=== PATIENT | male | born 1945 | race Caucasian/White ===

== ENCOUNTER 2017-10-05 10:30 | Outpatient (CLI) | END 2017-10-05 10:31 | disposition home or self-care (01) | LOC: RHC-LAB 10:30 | PROVIDERS: ATTEND Emergency Medicine | DX: N17.9 Acute kidney failure, unspecified (principal); I50.21 Acute systolic (congestive) heart failure; I48.2 Chronic atrial fibrillation | CPT/HCPCS: 36415; 80053; 85025; 85610 ==

== ENCOUNTER 2017-10-08 16:04 | Outpatient (CLI) | END 2017-10-08 16:05 | disposition home or self-care (01) | LOC: RHC-LAB 16:04 | PROVIDERS: ATTEND Emergency Medicine | DX: N17.9 Acute kidney failure, unspecified (principal) | CPT/HCPCS: 36415; 80053 ==

== ENCOUNTER 2017-10-12 15:46 | Outpatient (CLI) | END 2017-10-12 15:47 | disposition home or self-care (01) | LOC: LAB 15:46 | PROVIDERS: ATTEND Emergency Medicine | DX: I48.2 Chronic atrial fibrillation (principal); N17.9 Acute kidney failure, unspecified; E87.5 Hyperkalemia | CPT/HCPCS: 36415; 80053; 85610 ==

== ENCOUNTER 2017-10-15 16:52 | Outpatient (CLI) | END 2017-10-15 16:53 | disposition home or self-care (01) | LOC: RHC-LAB 16:52 | PROVIDERS: ATTEND Emergency Medicine | DX: Z51.81 Encounter for therapeutic drug level monitoring (principal); Z79.01 Long term (current) use of anticoagulants | CPT/HCPCS: 36415; 80053 ==

== ENCOUNTER 2017-10-20 14:12 | Outpatient (CLI) | END 2017-10-20 14:13 | disposition home or self-care (01) | LOC: LAB 14:12 | PROVIDERS: ATTEND Emergency Medicine | DX: E87.5 Hyperkalemia (principal); N17.9 Acute kidney failure, unspecified; Z79.01 Long term (current) use of anticoagulants | CPT/HCPCS: 36415; 80053; 85610 ==

== ENCOUNTER 2017-10-25 12:37 | Outpatient (CLI) | END 2017-10-25 12:38 | disposition home or self-care (01) | LOC: RHC-LAB 12:37 | PROVIDERS: ATTEND Emergency Medicine | DX: Z51.81 Encounter for therapeutic drug level monitoring (principal); Z79.01 Long term (current) use of anticoagulants | CPT/HCPCS: 36415; 85610 ==

== ENCOUNTER 2017-10-26 15:39 | Outpatient (CLI) ==
[2017-10-27 00:05] VITALS: BMI 28.2
== END 2017-10-26 15:40 | disposition home or self-care (01) ==
LOC: RHC-LAB 15:39
PROVIDERS: ATTEND Emergency Medicine
DX: N17.9 Acute kidney failure, unspecified (principal)
CPT/HCPCS: 36415; 80053

== ENCOUNTER 2017-10-26 19:31 | Inpatient (IN) ==
--- NOTE | 2017-10-26 21:16 | CT ---
EXAM: CT abdomen pelvis without contrast TECHNIQUE: Helical axial CT of the abdomen and pelvis was performed without contrast with coronal an d sagittal reconstructions. COMPARISON: None HISTORY: Abdominal pain FINDINGS: There are large bilateral pleural effusions and bibasilar atelectasis with a more focal consolidation partially seen in the left anterior lung base. There is some minimal ascites and there is some subc utaneous edema seen involving the abdomen and pelvis. There is no free air identified or obstruction or ileus or pathologic adenopathy. There is no bowel wall thickening or edema. The liver, spleen, pancreas,and adrenal glands show no acute abnormality. There are a few calcificati ons in the tip of the liver. There is no hiatal hernia. The gallbladder is normal with no stones or inflammation. There is no biliary or pancreatic ductal dilatation. There are no suspicious renal masses or hydronephrosis. There is a renal cyst on the right. There ar e no kidney stones. Both ureters demonstrate normal course and caliber. There is no filling defect i n the urinary bladder. The appendix is unremarkable. There are multiple non inflamed colonic diverticula. There are no abdo fatou wall hernias. There is extremely advanced calcific atherosclerosis of the aorta. There are adva nced coronary calcifications. There are no acute osseous abnormalities. IMPRESSION: 1. Large bilateral pleural effusions with atelectasis and possible left basilar consolidation. 2. Small amount of ascites with subcutaneous edema consistent with third spacing. 3. Advanced atherosclerosis. 4. Other nonacute findings as above.
[2017-10-26] MEDS: LOPRESSOR PO SCH (21:27)
--- NOTE | 2017-10-26 22:15 | CT ---
EXAM: CT chest without contrast TECHNIQUE: Helical axial CT of the chest was performed without contrast with coronal and sagittal rec onstructions. COMPARISON: CT abdomen pelvis from today HISTORY: Pleural effusion FINDINGS: Lung parenchyma: There are large bilateral pleural effusions identified along with some moderate atel ectasis. There is atelectasis of the lingular segment on the left versus pneumonia. There is old gr anulomatous disease. Mediastinum: No pathologic hilar or mediastinal adenopathy. There are advanced coronary calcification s. There is no pericardial effusion. There is advanced calcific atherosclerosis. There is no aortic a neurysm. There is old granulomatous disease. Upper Abdomen: Please see CT abdomen pelvis report for details. Osseous structures: Nothing acute. Surrounding soft tissues including the thyroid gland are normal. No supraclavicular or axillary adeno james. IMPRESSION: 1. Large bilateral pleural effusions with bibasilar atelectasis. 2. Atelectasis versus pneumonia in the lingular segment on the left. 3. Advanced atherosclerosis.
[2017-10-27 00:05] VITALS: BMI 28.2
[2017-10-27] MEDS: SODIUM CHLORIDE 1,000 ML IV SCH ×3 (00:14→21:58)
[2017-10-27] MEDS: DUONEB NEB SCH ×3 (05:30→21:44)
[2017-10-27] MEDS: LOPRESSOR PO SCH ×2 (08:13→20:47)
[2017-10-27] MEDS: FLOMAX PO SCH (08:13)
[2017-10-27] MEDS: PROSCAR PO SCH (08:13)
[2017-10-27] MEDS: CARDIZEM CD PO SCH (08:13)
[2017-10-27] MEDS: NON-FORMULARY MEDICATION (Calcitriol [Calcitriol] 0.25 MCG) PO SCH (08:13)
[2017-10-27] MEDS ORDERED: NON-FORMULARY MEDICATION (Diltiazem Hcl [Diltiazem 24hr Cd] 240 MG) PO SCH (09:00)
[2017-10-27] MEDS: COUMADIN PO SCH ×2 (16:52→17:37)
[2017-10-28] MEDS: COUMADIN PO SCH ×2 (00:22→18:25)
[2017-10-28] MEDS: DUONEB NEB SCH ×3 (04:40→21:55)
[2017-10-28] MEDS: FLOMAX PO SCH (08:29)
[2017-10-28] MEDS: PROSCAR PO SCH (08:29)
[2017-10-28] MEDS: LOPRESSOR PO SCH ×2 (08:29→20:18)
[2017-10-28] MEDS: CARDIZEM CD PO SCH (08:29)
[2017-10-28] MEDS: NON-FORMULARY MEDICATION (Calcitriol [Calcitriol] 0.25 MCG) PO SCH (08:30)
[2017-10-28] MEDS: SODIUM CHLORIDE 1,000 ML IV SCH ×2 (08:30→22:09)
--- NOTE | 2017-10-28 14:31 | PN ---
DATE OF SERVICE: 10/27/17 SUBJECTIVE: The patient was admitted from the office for acute on chronic renal failure. The patient was lethargic and sleepy. BUN went up to 71. The patient was admitted to the hospital and urinating good. REVIEW OF SYSTEMS: CONSTITUTIONAL: No fever, no chills. HEENT: Normal. ENDOCRINE: No weight gain, no weight loss. CVS: No angina symptoms. No CHF symptoms. No palpitations. No atypical chest pain for CAD. No shortness of breath. No PND, no orthopnea. RESPIRATORY: No cough, no hemoptysis. GI: No nausea, no vomiting. No abdominal pain. : No hematuria. No polyuria. MUSCULOSKELETAL: No joint swelling. PSYCHIATRIC: Not anxious. No depression. No suicidal thoughts. No homicidal thoughts. SKIN: Intact. No rash. PHYSICAL EXAMINATION: V/S: Blood pressure 105/66, respiratory rate 12, heart rate 67, temperature 97.6 and saturation 90 on 2 liters. HEENT: Normocephalic, atraumatic. Mucosa dry. Pallor positive. No icterus. NECK: Supple. No JVD, no carotid bruit. No lymphadenopathy. LUNGS: Decreased and basilar crackles. No rales or rhonchi. HEART: S1, S2 normal. No S3. No murmur, gallop or regurgitation. ABDOMEN: Soft, nontender. Bowel sounds active. No rigidity. No rebound or guarding. No CVA tenderness. EXTREMITIES: No cyanosis, clubbing. 1+ edema. MUSCULOSKELETAL: No joint swelling. NEUROLOGIC: Awake, alert, oriented times three. No focal deficit. LYMPHATIC: No lymph nodes palpable. SKIN: Intact. LABS: WBC 7.59, hgb 8.2, hct 25.6, plt count 196, sodium 142, potassium 4.6, chloride 115, bicarb 17, BUN 73, creatinine 6.34 and glucose 90. ASSESSMENT: 1. Acute on chronic renal failure 2. 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 Coronary artery disease 4. Systolic heart failure 5. Bilateral pleural effusion 6. Anemia 7. DVT, terminal make up operator anticoagulation PLAN: 1. Continue the IV fluids 2. Daily I&O's 3. Coumadin Will follow the patient in daily rounds. TIME SPENT: More than 35 minutes MTDD
[2017-10-29] MEDS: DUONEB NEB SCH ×2 (04:54→14:09)
[2017-10-29] MEDS: NON-FORMULARY MEDICATION (Calcitriol [Calcitriol] 0.25 MCG) PO SCH (08:58)
[2017-10-29] MEDS: CARDIZEM CD PO SCH (08:59)
[2017-10-29] MEDS: PROSCAR PO SCH (09:00)
[2017-10-29] MEDS: LOPRESSOR PO SCH (09:00)
[2017-10-29] MEDS: FLOMAX PO SCH (09:00)
--- NOTE | 2017-10-29 13:34 | PN ---
DATE OF SERVICE: 10/28/17 SUBJECTIVE: The patient was admitted with acute on chronic renal failure, slightly BUN and creatinine is getting better. Urine output is almost 3,000ml yesterday. REVIEW OF SYSTEMS: CONSTITUTIONAL: No fever, no chills. HEENT: Normal. ENDOCRINE: No weight gain, no weight loss. CVS: No angina symptoms. No CHF symptoms. No palpitations. No atypical chest pain for CAD. No shortness of breath. No PND, no orthopnea. RESPIRATORY: No cough, no hemoptysis. GI: No nausea, no vomiting. No abdominal pain. : No hematuria. No polyuria. MUSCULOSKELETAL: No joint swelling. PSYCHIATRIC: Not anxious. No depression. No suicidal thoughts. No homicidal thoughts. SKIN: Intact. No rash. PHYSICAL EXAMINATION: V/S: Blood pressure 102/64, respiratory rate 20, heart rate 68, temperature 98.6. HEENT: Normocephalic, atraumatic. Mucosa dry. Pallor positive. No icterus. NECK: Supple. No JVD, no carotid bruit. No lymphadenopathy. LUNGS: Decreased and clear to auscultation. No rales or rhonchi. HEART: S1, S2 normal. No S3. No murmur, gallop or regurgitation. ABDOMEN: Soft, nontender. Bowel sounds active. No rigidity. No rebound or guarding. No CVA tenderness. EXTREMITIES: No cyanosis, clubbing. 1+ edema. MUSCULOSKELETAL: No joint swelling. NEUROLOGIC: Awake, alert, oriented times three. No focal deficit. LYMPHATIC: No lymph nodes palpable. SKIN: Intact. LABS: WBC 6.81, hgb 8.3, hct 26.1, plt count 184, sodium 141, potassium 4.9, chloride 116, bicarb 16, BUN 70, creatinine 6.07 and glucose 86. ASSESSMENT: 1. Acute on chronic renal failure 2. Urinary obstipation on Painter Catheter 3. CHF, systolic 4. Coronary artery disease, refused to have heart cath 5. BPH and elevated PSA ( Dr. Díaz is urologist) 6. Dependant leg edema 7. Anemia 8. DVT and PE PLAN: 1. Continue IV fluids 2. Daily I&O's 3. Continue the Coumadin 4. FPC anticoagulation been discussed. 4. TIME SPENT: More than 35 minutes MTDD
[2017-10-29 13:52] VITALS: TEMP 97.7
[2017-10-29 16:07] VITALS: BP 112/68
--- NOTE | 2017-11-02 08:18 | DS ---
DATE OF SERVICE: 10/29/17 FINAL DIAGNOSIS: 1. ACUTE ON CHRONIC RENAL FAILURE SECONDARY TO POSTOBSTRUCTIVE UROPATHY ON DESHPANDE CATHETER, FOLLOWS WITH DR. MOLINA AND HEMATOLOGY TECHNICIAN IN [place]. 2. ANEMIA, IRON DEFICIENCY PER BLOOD WORK, MOST LIKELY FROM THE CHRONIC KIDNEY DISEASE, NEEDING ONE UNIT OF BLOOD TRANSFUSION ON THE PATIENT. 3. SYSTOLIC HEART FAILURE. 4. PULMONARY EMBOLISM. 5. DVT, NURSING HOME ANTICOAGULATION. 6. COPD. 7. NONCOMPLIANCE. DISCHARGE INSTRUCTIONS: Followup appointment with cartography/mapping technician today. Followup in the [facility] within 5 to 7 days. MEDICATIONS AT DISCHARGE: Continue Calcitriol Diltiazem Proscar Metoprolol Flomax Coumadin ProAir NEW PRESCRIPTIONS: Albuterol Sulfate (ProAir HfA) take two puffs inhaled every 6 hours. DIET INSTRUCTIONS: Cardiac and Healthy diet; please avoid the leafy vegetables while taking Coumadin. ACTIVITY: Get plenty of rest at home. Gradually increase your activity level according to your toleration. DISEASE SPECIFIC EDUCATION: Fci anticoagulation, GI bleeding, intracranial bleed discussed, verbalized understanding. Chronic kidney disease - do not use Tylenol or Ibuprofen discussed. HOSPITAL COURSE: This patient was seen as an outpatient was recently diagnosed with acute renal failure, CAD, CHF. BUN and creatinine went up to 72 and creatinine 6.49. Admitted and started on IV fluids, gradually the BUN and creatinine were getting better and down to 6.3 and 5.74. Hemoglobin and hematocrit were 8.2, 8.3 and 7.9. At that time blood transfusion given. Anemia profile showed iron deficiency anemia. Meanwhile the patient did not have any complications. CT chest showed bilateral pleural effusion. CT abdomen and pelvis was normal. As the patient was doing fine, up and about walking, the patient was discharged home. He was given prescription for Duonebs to use at home as it was helping the patient. TIME SPENT: MORE THAN 65 MINUTES MTDD
== END 2017-10-29 16:45 | disposition home or self-care (01) | DRG 698 ==
LOC: MEDSURG B 19:31
PROVIDERS: ADMIT Emergency Medicine; ATTEND Emergency Medicine
PROC: 30233N1 Transfusion of Nonautologous Red Blood Cells into Peripheral Vein, Percutaneous Approach (ICD-10-PCS; principal; 2017-10-29)
DX: N13.9 Obstructive and reflux uropathy, unspecified (principal); I26.99 Other pulmonary embolism without acute cor pulmonale; I50.20 Unspecified systolic (congestive) heart failure; J90 Pleural effusion, not elsewhere classified; I82.403 Acute embolism and thrombosis of unspecified deep veins of lower extremity, bilateral; I48.2 Chronic atrial fibrillation; D50.9 Iron deficiency anemia, unspecified; E87.5 Hyperkalemia; R97.20 Elevated prostate specific antigen [PSA]; N40.1 Benign prostatic hyperplasia with lower urinary tract symptoms; R33.8 Other retention of urine; I25.10 Atherosclerotic heart disease of native coronary artery without angina pectoris; J44.9 Chronic obstructive pulmonary disease, unspecified; R60.0 Localized edema; Z91.19 Patient's noncompliance with other medical treatment and regimen; Z79.01 Long term (current) use of anticoagulants
CPT/HCPCS: 36415; 36430; 80053; 82607; 82728; 82746; 83540; 83550; 84466; 85025; 85045; 85610; 86850; 86900; 86922; 93005; 93010; 94640; 97802

== ENCOUNTER 2017-11-03 11:35 | Outpatient (CLI) | END 2017-11-03 11:36 | disposition home or self-care (01) | LOC: RHC-LAB 11:35 | PROVIDERS: ATTEND Emergency Medicine | DX: N17.9 Acute kidney failure, unspecified (principal) | CPT/HCPCS: 36415; 80053 ==

== ENCOUNTER 2017-11-11 13:20 | Outpatient (CLI) | END 2017-11-11 13:21 | disposition home or self-care (01) | LOC: FCC-LAB 13:20 | PROVIDERS: ATTEND Emergency Medicine | DX: N17.9 Acute kidney failure, unspecified (principal); I82.403 Acute embolism and thrombosis of unspecified deep veins of lower extremity, bilateral; I50.21 Acute systolic (congestive) heart failure; Z79.01 Long term (current) use of anticoagulants; Z51.81 Encounter for therapeutic drug level monitoring | CPT/HCPCS: 36415; 80053; 85610 ==

== ENCOUNTER 2017-11-11 17:59 | Inpatient (IN) ==
[2017-11-11 18:42] VITALS: BMI 27.3
[2017-11-11] MEDS ORDERED: COUMADIN PO SCH (20:00)
[2017-11-11] MEDS: SODIUM CHLORIDE 1,000 ML IV SCH (20:25)
[2017-11-11] MEDS: PROAIR HFA IH SCH (20:25)
[2017-11-11] MEDS: LOPRESSOR PO SCH (20:25)
[2017-11-11] MEDS: COUMADIN PO SCH (23:29)
[2017-11-12] MEDS: PROAIR HFA IH SCH ×4 (02:17→23:11)
[2017-11-12] MEDS ORDERED: NON-FORMULARY MEDICATION (Diltiazem Hcl [Diltiazem 24hr Cd] 240 MG) PO SCH (09:00)
[2017-11-12] MEDS: SODIUM CHLORIDE 1,000 ML IV SCH ×2 (09:31→23:05)
[2017-11-12] MEDS: CARDIZEM CD PO SCH (09:31)
[2017-11-12] MEDS: LOPRESSOR PO SCH ×2 (09:32→23:03)
[2017-11-12] MEDS: FLOMAX PO SCH (09:32)
[2017-11-12] MEDS: PROSCAR PO SCH (09:32)
[2017-11-12] MEDS: NON-FORMULARY MEDICATION (Calcitriol [Calcitriol] 0.25 MCG) PO SCH (09:33)
[2017-11-12] MEDS: COUMADIN PO SCH (16:26)
[2017-11-13] MEDS: PROAIR HFA IH SCH ×4 (03:47→22:30)
[2017-11-13] MEDS: CARDIZEM CD PO SCH (08:30)
[2017-11-13] MEDS: PROSCAR PO SCH (08:30)
[2017-11-13] MEDS: LOPRESSOR PO SCH ×2 (08:30→22:30)
[2017-11-13] MEDS: FLOMAX PO SCH (08:30)
[2017-11-13] MEDS: NON-FORMULARY MEDICATION (Calcitriol [Calcitriol] 0.25 MCG) PO SCH (08:31)
[2017-11-13] MEDS ORDERED: SODIUM BICARBONATE 8.4% IVP STA (08:39)
[2017-11-13] MEDS: ROCEPHIN 1 GM in SODIUM CHLORIDE 50 ML IV SCH (09:09)
[2017-11-13] MEDS: SODIUM CHLORIDE 1,000 ML IV SCH (15:14)
[2017-11-13] MEDS: COUMADIN PO SCH (16:57)
[2017-11-14] MEDS: PROAIR HFA IH SCH ×4 (01:42→21:30)
[2017-11-14] MEDS: SODIUM CHLORIDE 1,000 ML IV SCH ×2 (03:49→17:08)
[2017-11-14] MEDS: ROCEPHIN 1 GM in SODIUM CHLORIDE 50 ML IV SCH (08:28)
[2017-11-14] MEDS: PROSCAR PO SCH (08:29)
[2017-11-14] MEDS: CARDIZEM CD PO SCH (08:29)
[2017-11-14] MEDS: FLOMAX PO SCH (08:29)
[2017-11-14] MEDS: NON-FORMULARY MEDICATION (Calcitriol [Calcitriol] 0.25 MCG) PO SCH (08:29)
[2017-11-14] MEDS: LOPRESSOR PO SCH ×2 (08:29→21:29)
[2017-11-14] MEDS: COUMADIN PO SCH (16:34)
[2017-11-15] MEDS: PROAIR HFA IH SCH ×4 (01:52→21:01)
[2017-11-15] MEDS: SODIUM CHLORIDE 1,000 ML IV SCH ×3 (05:57→20:42)
[2017-11-15] MEDS: CARDIZEM CD PO SCH (09:54)
[2017-11-15] MEDS: NON-FORMULARY MEDICATION (Calcitriol [Calcitriol] 0.25 MCG) PO SCH (09:54)
[2017-11-15] MEDS: LOPRESSOR PO SCH ×2 (09:55→20:52)
[2017-11-15] MEDS: PROSCAR PO SCH (09:55)
[2017-11-15] MEDS: FLOMAX PO SCH (09:55)
[2017-11-15] MEDS: ROCEPHIN 1 GM in SODIUM CHLORIDE 50 ML IV SCH (09:56)
[2017-11-15] MEDS: COUMADIN PO SCH (17:01)
[2017-11-16] MEDS: PROAIR HFA IH SCH ×3 (05:34→14:57)
[2017-11-16] MEDS ORDERED: KAYEXALATE SUSP PO STA ×2 (08:40→15:02)
[2017-11-16] MEDS: ROCEPHIN 1 GM in SODIUM CHLORIDE 50 ML IV SCH (09:15)
[2017-11-16] MEDS: PROSCAR PO SCH (09:17)
[2017-11-16] MEDS: LOPRESSOR PO SCH (09:17)
[2017-11-16] MEDS: CARDIZEM CD PO SCH (09:17)
[2017-11-16] MEDS: FLOMAX PO SCH (09:17)
[2017-11-16] MEDS: NON-FORMULARY MEDICATION (Calcitriol [Calcitriol] 0.25 MCG) PO SCH (09:18)
[2017-11-16 13:59] VITALS: BP 115/65; TEMP 97.1
[2017-11-16] MEDS: SODIUM CHLORIDE 1,000 ML IV SCH (15:26)
--- NOTE | 2017-11-16 17:36 | PCM.HOSP ---
- Initial Hospital Care [id number] 70 Minutes Bedside ([id number]): 11/11 - Subsequent Care [id number] 35 Minutes per Day ([id number]): 11/12. . 11/14. 11/15 - Hospital Discharge [id number] More than 30 Minutes ([id number]): 11/16
--- NOTE | 2017-11-18 13:59 | PN ---
DATE OF SERVICE: 11/12/17 SUBJECTIVE: The patient was admitted with acute on chronic renal failure. BUN and creatinine slightly improved 17 and 6.54. He is up and about walking. No nausea or vomiting. Bicarb is 14. REVIEW OF SYSTEMS: CONSTITUTIONAL: No fever, no chills. HEENT: Normal. ENDOCRINE: No weight gain, no weight loss. CVS: No angina symptoms. No CHF symptoms. No palpitations. No atypical chest pain for CAD. No shortness of breath. No PND, no orthopnea. No PND. RESPIRATORY: No cough, no hemoptysis. GI: No nausea, no vomiting. No abdominal pain. : No hematuria. No polyuria. MUSCULOSKELETAL: No joint swelling. PSYCHIATRIC: Not anxious. No depression. No suicidal thoughts. No homicidal thoughts. SKIN: Intact. No rash. PHYSICAL EXAMINATION: V/S: BP 108/58, respiratory rate 18, heart rate 86, temperature 98.0, saturation normal. HEENT: Normocephalic, atraumatic. Mucosa dry. Pallor positive. No icterus. NECK: Supple. No JVD, no carotid bruit. No lymphadenopathy. LUNGS: Decreased breath sounds. Clear to auscultation. No rales or rhonchi. HEART: S1, S2 normal. No S3. No murmur, gallop or regurgitation. ABDOMEN: Soft, nontender. Bowel sounds active. No rigidity. No rebound or guarding. No CVA tenderness. EXTREMITIES: 1+ edema. No cyanosis or clubbing. MUSCULOSKELETAL: No joint swelling. NEUROLOGIC: Awake, alert. No focal deficit. LYMPHATIC: No lymph nodes palpable. SKIN: Intact. LABS: White count 8.73, hemoglobin 9.6, hematocrit 28.7, platelet count 192. Sodium 135, potassium 4.5, chloride 111, bicarb 14, BUN 73, creatinine 6.54, glucose 92. ASSESSMENT: 1. ACUTE ON CHRONIC RENAL FAILURE 2. URINARY OBSTRUCTION 3. STATUS POST OBSTRUCTIVE UROPATHY - PATIENT IS REFUSING HEMODIALYSIS 4. CORONARY ARTERY DISEASE 5. TRIPLE VESSEL DISEASE 6. EJECTION FRACTION 30 7. ATRIAL FIBRILLATION 8. DVT AND PE ON LONG-TERM ANTICOAGULATION PLAN: 1. Continue to monitor PT 2. IV fluids 3. Daily I & O's 4. Continue home medications TIME SPENT: More than 35 minutes MTDD
--- NOTE | 2017-11-18 14:12 | DS ---
DATE OF SERVICE: 11/16/17 FINAL DIAGNOSIS: 1. Acute on chronic renal failure 2. Hyperkalemia 3. Anemia probably from the chronic kidney disease 4. CAD 5. CHF 6. Atrial fibrillation 7. Ejection fraction 20% 8. DVT on penitentiary anticoagulation 9. Post obstruction uropathy with BPH and elevated PSA being followed by Dr. Díaz 10.Urinary tract infection organism of Klebsiella Oxytoca DISCHARGE INSTRUCTIONS: Discharge the patient home. Kayexalate one more dose is given today. Followup with Dr. Díaz urologist. Scheduled appointment with Dr. Amanda on November. Continue the rest of the home medications. MEDICATIONS AT DISCHARGE: Flomax Calcitriol Diltiazem Proscar Metoprolol Coumadin ProAir NEW PRESCRIPTIONS: None DIET INSTRUCTIONS: Cardiac and healthy diet ACTIVITY: As much as tolerated SMOKING: Former smoker DISEASE SPECIFIC EDUCATION: Renal failure Anemia Chronic Painter Catheter and urinary tract infection been discussed and verbalized understanding. HOSPITAL COURSE: Solomon Hummel was seen as outpatient on the November 11. BUN and creatinine was high 72 and 6.68 with Potassium 5.2 which is worsening kidney functions so the patient was suggested for the admission and the patient came to the admission and being directly admitted. Started on the IV fluids. Gradually BUN and creatinine was getting better. Creatinine dropped from 6.8 to 6.56 and 6.13 then 5.66. Meanwhile the Potassium went up to 5.6. Kayexalate was given which came down again to 5.6. Meanwhile the patient been up and about walking and did not have any shortness of breath or breathing problem. PT/INR been monitored with Coumadin dose. PT/INR was 2.35 and did not change. Urine was growing leukocyte esterase 3+ positive and started on Rocephin 1 gram daily which did grow Klebsiella Oxytoca. The patient been doing good and up and about walking. Did not have any complications. At that time the patient being discharged home today. Explained about increasing the hydration. Followup with Urologist and will be following up with the patient within 5-7 days. TIME SPENT: MORE THAN 65 MINUTES MTDD
--- NOTE | 2017-11-19 14:01 | PN ---
DATE OF SERVICE: 11/13/17 SUBJECTIVE: The patient is admitted with acute on chronic renal failure. The patient's urine output is good. UA shows some positive bacteria, growing heavy gram negative rods. Will start antibiotics. REVIEW OF SYSTEMS: CONSTITUTIONAL: No fever, no chills. HEENT: Normal. ENDOCRINE: No weight gain, no weight loss. CVS: No angina symptoms. No CHF symptoms. No palpitations. No atypical chest pain for CAD. No shortness of breath. No PND, no orthopnea. RESPIRATORY: No cough, no hemoptysis. GI: No nausea, no vomiting. No abdominal pain. : No hematuria. No polyuria. MUSCULOSKELETAL: No joint swelling. PSYCHIATRIC: Not anxious. No depression. No suicidal thoughts. No homicidal thoughts. SKIN: Intact. No rash. PHYSICAL EXAMINATION: V/S: BP 118/72, respiratory rate 18, heart rate 84, temperature 97.8, saturation 98. HEENT: Normocephalic, atraumatic. Mucosa dry. Pallor positive. No icterus. NECK: Supple. No JVD, no carotid bruit. No lymphadenopathy. LUNGS: Decreased breath sounds with basilar crackles. No rales or rhonchi. HEART: S1, S2 normal. No S3. No murmur, gallop or regurgitation. ABDOMEN: Soft, nontender. Bowel sounds active. No rigidity. No rebound or guarding. No CVA tenderness. EXTREMITIES: No cyanosis, clubbing or pedal edema. MUSCULOSKELETAL: No joint swelling. NEUROLOGIC: Awake, alert, oriented times three. No focal deficit. LYMPHATIC: No lymph nodes palpable. SKIN: Intact. LABS: Sodium 137, potassium 4.8, chloride 115, bicarb 13, BUN 68, creatinine 6.33. White count 7.75, hemoglobin 9.2, hematocrit 27.2, platelet count 185. ASSESSMENT: 1. ACUTE ON CHRONIC RENAL FAILURE 2. UTI, GRAM NEGATIVE RODS 3. METABOLIC ACIDOSIS 4. CAD 5. CHF 6. EJECTION FRACTION 30% 7. ATRIAL FIBRILLATION 8. DVT AND PE ON COMMERCIAL MANAGER ANTICOAGULATION PLAN: 1. Continue to monitor the PT/INR 2. Continue IV fluids 3. Daily I & O's 4. Will start the patient on Rocephin 1 gm daily TIME SPENT: More than 35 minutes MTDD
--- NOTE | 2017-11-22 13:23 | PN ---
DATE OF SERVICE: 11/14/17 SUBJECTIVE: The patient is up and about walking, not less short of breath. No fever, no chills. No PND or orthopnea. BUN is worse today 73 from 68 yesterday. Creatinine 6.13 from 6.33. Urine output has been good. REVIEW OF SYSTEMS: CONSTITUTIONAL: No fever, no chills. HEENT: Normal. ENDOCRINE: No weight gain, no weight loss. CVS: No angina symptoms. No CHF symptoms. No palpitations. No atypical chest pain for CAD. No shortness of breath. No PND, no orthopnea. RESPIRATORY: No cough, no hemoptysis. GI: No nausea, no vomiting. No abdominal pain. : No hematuria. No polyuria. MUSCULOSKELETAL: No joint swelling. PSYCHIATRIC: Not anxious. No depression. No suicidal thoughts. No homicidal thoughts. SKIN: Intact. No rash. PHYSICAL EXAMINATION: V/S: BP 121/73, respiratory rate 16, heart rate 74, temperature 98.3, saturation 95. HEENT: Normocephalic, atraumatic. Mucosa dry. Pallor positive. No icterus. NECK: Supple. No JVD, no carotid bruit. No lymphadenopathy. LUNGS: Decreased breath sounds with basilar crackles. HEART: S1, S2 normal. No S3. No murmur, gallop or regurgitation. ABDOMEN: Soft, nontender. Bowel sounds active. No rigidity. No rebound or guarding. No CVA tenderness. EXTREMITIES: No cyanosis, clubbing or pedal edema. MUSCULOSKELETAL: No joint swelling. NEUROLOGIC: Awake, alert. No focal deficit. LYMPHATIC: No lymph nodes palpable. SKIN: Intact. LABS: Sodium 139, potassium 4.9, chloride 117, bicarb 16, BUN 17, creatinine 6.13. White count 7.02, hemoglobin 8.8, hematocrit 26.6, platelet count 204. ASSESSMENT: 1. ACUTE ON CHRONIC RENAL FAILURE 2. METABOLIC ACIDOSIS 3. CAD 4. CHF 5. EJECTION FRACTION 20 TO 30 6. PULMONARY EMBOLISM/DVT ON PENITENTIARY ANTICOAGULATION 7. CHRONIC KIDNEY DISEASE MOSTLY STARTED WITH POST OBSTRUCTIVE UROPATHY 8. ELEVATED PSA FOLLOWED BY DR. MOLINA IN [place] PLAN: 1. Continue Coumadin 2. Continue IV fluids 3. Daily I & O's TIME SPENT: More than 35 minutes MTDD
== END 2017-11-16 15:45 | disposition home or self-care (01) | DRG 682 ==
LOC: MEDSURG A 17:59
PROVIDERS: ADMIT Emergency Medicine; ATTEND Emergency Medicine
DX: N18.9 Chronic kidney disease, unspecified (principal); I50.21 Acute systolic (congestive) heart failure; I82.409 Acute embolism and thrombosis of unspecified deep veins of unspecified lower extremity; I42.0 Dilated cardiomyopathy; E87.2 Acidosis; N39.0 Urinary tract infection, site not specified; I25.10 Atherosclerotic heart disease of native coronary artery without angina pectoris; I50.9 Heart failure, unspecified; I48.2 Chronic atrial fibrillation; E87.5 Hyperkalemia; B96.1 Klebsiella pneumoniae [K. pneumoniae] as the cause of diseases classified elsewhere; R33.9 Retention of urine, unspecified; N40.0 Benign prostatic hyperplasia without lower urinary tract symptoms; D50.9 Iron deficiency anemia, unspecified; Z79.01 Long term (current) use of anticoagulants
CPT/HCPCS: 36415; 80053; 81001; 82272; 84132; 85025; 85610; 87081; 87086; 87186

== ENCOUNTER 2017-11-19 12:19 | Outpatient (CLI) | END 2017-11-19 12:20 | disposition home or self-care (01) | LOC: LAB 12:19 | PROVIDERS: ATTEND Emergency Medicine | DX: I82.403 Acute embolism and thrombosis of unspecified deep veins of lower extremity, bilateral (principal); I50.21 Acute systolic (congestive) heart failure; Z51.81 Encounter for therapeutic drug level monitoring; Z79.01 Long term (current) use of anticoagulants; I48.2 Chronic atrial fibrillation | CPT/HCPCS: 36415; 80053; 85610 ==

== ENCOUNTER 2017-11-22 15:48 | Outpatient (CLI) | END 2017-11-22 15:49 | disposition home or self-care (01) | LOC: RHC-LAB 15:48 | PROVIDERS: ATTEND Emergency Medicine | DX: Z51.81 Encounter for therapeutic drug level monitoring (principal); Z79.01 Long term (current) use of anticoagulants | CPT/HCPCS: 36415; 80053; 85610 ==

== ENCOUNTER 2017-11-29 12:52 | Outpatient (CLI) | END 2017-11-29 12:53 | disposition home or self-care (01) | LOC: LAB 12:52 | PROVIDERS: ATTEND Emergency Medicine | DX: I48.2 Chronic atrial fibrillation (principal); D50.0 Iron deficiency anemia secondary to blood loss (chronic) | CPT/HCPCS: 36415; 80053; 85610 ==

== ENCOUNTER 2017-12-14 17:25 | Inpatient (IN) ==
[2017-12-14] MEDS ORDERED: DUONEB NEB STA (17:40)
[2017-12-14] MEDS ORDERED: SOLU-MEDROL 125 MG IVP STA (17:45)
[2017-12-14] MEDS ORDERED: LASIX IVP STA (17:45)
[2017-12-14] MEDS ORDERED: CARDIZEM INJ IVP STA ×2 (17:46)
[2017-12-14] MEDS ORDERED: CARDIZEM INJ ONE (17:54)
--- NOTE | 2017-12-14 18:03 | ED.PDOC ---
General ED Provider: Dr. YVES TEJEDA Chief Complaint: Shortness of Air Stated Complaint: Shortness of breath progressively worsened over past 2 days. Extremely weak. Hx Chronic Kidney Disease Time Seen by Physician: 17:50 Mode of Arrival: Wheelchair Information Source: Patient, Family Exam Limitations: Clinical condition Primary Care Provider: [facility] Nursing and Triage Documentation Reviewed and Agree: Yes Does patient meet sepsis criteria?: Yes If yes, has appropriate treatment been initiated?: Yes System Inflammatory Response Syndrome: Pulse >90 BPM, Resp >20/Minute Sepsis Protocol: For patient's 13 years and over: Temp is 96.8 and below OR 101 and greater Pulse >90 BPM Resp >20/minute Acutely Altered Mental Status Are patient's symptoms suggestive of a new infection, such as: -Pneumonia -Skin, Soft Tissue -Endocarditis -UTI -Bone, Joint Infection -Implantable Device -Acute Abdominal Infection -Wound Infection -Meningitis -Blood Stream Catheter Infection -Unknown Respiratory Complaint Exam - Shortness of Air Complaint/Exam Onset/Duration: 2 days Symptoms Are: Still present Timing: Constant Initial Severity: Moderate Current Severity: Severe Character: Reports: Dyspnea at rest, Dyspnea on exertion Aggravating: Reports: Movement, Recumbent position Alleviating: Reports: None Associated Signs and Symptoms: Reports: Wheezing, Chest pain with cough, Fever, Chills, Labored breathing Related History: Reports: Similar episode History of Healthcare-Acquired Pneumonia: No Pulmonary Embolism Risk Factors: Reports: None Cardiac Risk Factors: Reports: CHF Review of Systems - Review Of Systems Constitutional: Reports: Diaphoresis Eyes: Reports: No symptoms Ears, Nose, Mouth, Throat: Reports: No symptoms Respiratory: Reports: Cough, Short of air, Wheezing Cardiac: Reports: Irregular heart rate, Palpitations GI: Reports: No symptoms : Reports: No symptoms Musculoskeletal: Reports: No symptoms Skin: Reports: No symptoms Neurological: Reports: No symptoms Endocrine: Reports: No symptoms Hematologic/Lymphatic: Reports: No symptoms All Other Systems: Other (Renal failure) Past Medical History - Past Medical History Previously Healthy: Yes Endocrine: Reports: None Cardiovascular: Reports: None, Hypertension, CHF, A-Fib Respiratory: Reports: None, COPD, Bronchitis Hematological: Reports: None Gastrointestinal: Reports: None Genitourinary: Reports: None Neuro/Psych: Reports: None Musculoskeletal: Reports: None Cancer: Reports: None - Surgical History General Surgical History: Reports: None, Unknown - Family History Family History: Reports: None, Unknown - Social History Smoking Status: Former smoker Hx Substance Use: No Physical Exam - Physical Exam Appearance: Ill-appearing, Thin Ill-appearing: Severe Pain Distress: Mild Eyes: ZI, EOMI, Conjunctiva clear ENT: Ears normal, Nose normal, Oropharynx normal Neck: Supple Respiratory: Breath sounds diminished, Crackles, Wheezes Cardiovascular: Irregular rhythm, Tachycardia GI/: Soft, Nontender, No masses, Bowel sounds normal, No Organomegaly Musculoskeletal: Normal strength, ROM intact, No edema, No calf tenderness Skin: Warm, Dry, Normal color Neurological: Sensation intact, Motor intact, Reflexes intact, Cranial nerves intact, Alert, Oriented Psychiatric: Affect appropriate, Mood appropriate Interpretation - Radiology Interpretation Radiology Interpretation By: Radiologist Exam Interpreted: Portable CXR (acute lt sided chest changes) Re-Evaluation - Re-Evaluation Time of Re-Evaluation: 19:30 Status: Improved Vital Signs Stable: Yes Appearance: NAD Lungs: Other (diminished) Skin: Warm and Dry Neuro: Alert and Oriented X3 CV: RRR Critical Care Note - Critical Care Note Total Time (mins): 60 Course - Course Hematology/Chemistry: 12/14/17 17:30 12/14/17 17:30 Orders, Labs, Meds: Lab Review 12/14/17 12/14/17 12/14/17 17:30 17:30 17:30 WBC 13.38 H RBC 3.36 L Hgb 10.0 L Hct 28.9 L MCV 86.0 MCH 29.8 MCHC 34.6 RDW Coeff of Kirsten 15.4 H Plt Count 206 Immature Gran % (Auto) 0.7 Neut % (Auto) 84.5 Lymph % (Auto) 6.7 L Nelson % (Auto) 8.0 Eos % (Auto) 0.0 Baso % (Auto) 0.1 Immature Gran # (Auto) 0.1 Neut # (Auto) 11.3 H Lymph # (Auto) 0.9 Nelson # (Auto) 1.1 Eos # (Auto) 0.0 Baso # (Auto) 0.0 PT INR APTT D-Dimer (Manual) Puncture Site O2 Saturation ABG pH ABG pCO2 ABG pO2 ABG HCO3 ABG Total CO2 ABG Base Excess Mitchell Test FiO2 % Sodium 132 L Potassium 5.2 H Chloride 104 Carbon Dioxide 14 L Anion Gap 19.2 BUN 82 H* Creatinine 6.14 H* Estimated GFR (MDRD) 9.00 BUN/Creatinine Ratio 13.35 Glucose 188 H Lactic Acid Calcium 8.8 Total Bilirubin 0.8 AST 186 H ALT 276 H Alkaline Phosphatase 73 Total Creatine Kinase 122 CK-MB (CK-2) 2.6 CK-MB (CK-2) % 2.85336 Troponin I 0.0980 B-Natriuretic Peptide 6665 H Total Protein 7.2 Albumin 3.2 L Globulin 4.0 Albumin/Globulin Ratio 0.80 12/14/17 12/14/17 12/14/17 17:30 17:30 17:30 WBC RBC Hgb Hct MCV MCH MCHC RDW Coeff of Kirsten Plt Count Immature Gran % (Auto) Neut % (Auto) Lymph % (Auto) Nelson % (Auto) Eos % (Auto) Baso % (Auto) Immature Gran # (Auto) Neut # (Auto) Lymph # (Auto) Nelson # (Auto) Eos # (Auto) Baso # (Auto) PT 19.2 H INR 1.96 APTT 36.7 D-Dimer (Manual) 4384.74 Puncture Site O2 Saturation ABG pH ABG pCO2 ABG pO2 ABG HCO3 ABG Total CO2 ABG Base Excess Mitchell Test FiO2 % Sodium Potassium Chloride Carbon Dioxide Anion Gap BUN Creatinine Estimated GFR (MDRD) BUN/Creatinine Ratio Glucose Lactic Acid 16.1 Calcium Total Bilirubin AST ALT Alkaline Phosphatase Total Creatine Kinase CK-MB (CK-2) CK-MB (CK-2) % Troponin I B-Natriuretic Peptide Total Protein Albumin Globulin Albumin/Globulin Ratio 12/14/17 17:39 WBC RBC Hgb Hct MCV MCH MCHC RDW Coeff of Kirsten Plt Count Immature Gran % (Auto) Neut % (Auto) Lymph % (Auto) Nelson % (Auto) Eos % (Auto) Baso % (Auto) Immature Gran # (Auto) Neut # (Auto) Lymph # (Auto) Nelson # (Auto) Eos # (Auto) Baso # (Auto) PT INR APTT D-Dimer (Manual) Puncture Site Lr O2 Saturation 77.0 L ABG pH 7.321 L ABG pCO2 23.7 L ABG pO2 44.0 L* ABG HCO3 12.3 L ABG Total CO2 13 L ABG Base Excess -14 L Mitchell Test + FiO2 % 21.0 Sodium Potassium Chloride Carbon Dioxide Anion Gap BUN Creatinine Estimated GFR (MDRD) BUN/Creatinine Ratio Glucose Lactic Acid Calcium Total Bilirubin AST ALT Alkaline Phosphatase Total Creatine Kinase CK-MB (CK-2) CK-MB (CK-2) % Troponin I B-Natriuretic Peptide Total Protein Albumin Globulin Albumin/Globulin Ratio Orders Category Date Time Status ABG DRAW REQUEST Stat CARDIO 12/14/17 17:40 Completed EKG-(ED ONLY) Stat CARDIO 12/14/17 17:39 Completed NEBULIZER TREATMENT Stat CARDIO 12/14/17 17:39 Completed ABG Stat LAB 12/14/17 17:39 Completed B-TYPE NATRIURETIC PEPTIDE Stat LAB 12/14/17 17:30 Completed BLOOD CULTURE (ED ONLY) Stat LAB 12/14/17 17:30 Received CBC W/ AUTO DIFF Stat LAB 12/14/17 17:30 Completed COMPREHENSIVE METABOLIC PANEL Stat LAB 12/14/17 17:30 Completed CREATINE KINASE Stat LAB 12/14/17 17:30 Completed D-DIMER Stat LAB 12/14/17 17:30 Completed LACTIC ACID Stat LAB 12/14/17 17:30 Completed PT WITH INR Stat LAB 12/14/17 17:30 Completed PTT [PARTIAL THROMBOPLASTIN TIME] Stat LAB 12/14/17 17:30 Completed TROPONIN I Stat LAB 12/14/17 17:30 Completed 0.9 % Sodium Chloride [Sodium Chloride] 100 ml MEDS 12/14/17 18:00 Ordered Diltiazem HCl Inj [Cardizem Inj] 125 mg IV 10 mg/hr Ceftriaxone Sodium [Rocephin] 1 gm MEDS 12/14/17 19:46 Active 0.9 % Sodium Chloride [Sodium Chloride] 50 ml IV ONCE Diltiazem HCl Inj [Cardizem Inj] MEDS 12/14/17 17:46 Discontinued 20 mg IVP ONCE STA Diltiazem HCl [Cardizem Inj] MEDS 12/14/17 17:54 Discontinued 25 mg .ROUTE .STK-MED ONE Enoxaparin Sodium [Lovenox] MEDS 12/14/17 19:47 Stop Req 100 mg SUBCUT ONCE STA Enoxaparin Sodium [Lovenox] MEDS 12/14/17 19:48 Discontinued 30 mg SUBCUT ONCE STA Furosemide [Lasix] MEDS 12/14/17 17:45 Discontinued 40 mg IVP ONCE STA Ipratropium/Albuterol Neb [Duoneb] MEDS 12/14/17 17:40 Discontinued 1 vial NEB ONCE STA Methylprednisolone Sod Succ/Pf [Solu-Medrol 125 mg] MEDS 12/14/17 17:45 Discontinued 125 mg IVP ONCE STA CHEST, 1V AP ONLY Stat RADS 12/14/17 17:42 Completed Medications Generic Name Dose Route Start Last Admin Trade Name Freq PRN Reason Stop Dose Admin Diltiazem HCl 125 mg/ Sodium 125 mls @ 10 mls/hr 12/14/17 18:00 12/14/17 18: 08 Chloride IV 5 mg/hr .[id number] ROSE 5 mls/hr Administration Protocol 10 MG/HR Ceftriaxone Sodium 1 gm/ 50 mls @ 75 mls/hr 12/14/17 19:46 Sodium Chloride IV 12/14/17 20:25 ONCE STA Discontinued Medications Generic Name Dose Route Start Last Admin Trade Name Freq PRN Reason Stop Dose Admin Albuterol/Ipratropium 1 vial 12/14/17 17:40 12/14/17 17:46 Duoneb NEB 12/14/17 17:41 1 vial ONCE STA Administration Diltiazem HCl 20 mg 12/14/17 17:46 12/14/17 18:00 Cardizem Inj IVP 12/14/17 17:47 20 mg ONCE STA Administration Enoxaparin Sodium 30 mg 12/14/17 19:48 Lovenox SUBCUT 12/14/17 19:49 ONCE STA Furosemide 40 mg 12/14/17 17:45 12/14/17 17:53 Lasix IVP 12/14/17 17:46 40 mg ONCE STA Administration Methylprednisolone Sodium Succinate 125 mg 12/14/17 17:45 12/14/17 17:53 Solu-Medrol 125 Mg IVP 12/14/17 17:46 125 mg ONCE STA Administration Vital Signs: Temp Pulse Resp BP Pulse Ox 12/14/17 18:36 91 H 114/75 90 L 12/14/17 17:57 117 H 130/92 H 88 L 12/14/17 17:31 100.0 F H 139 H 30 H 121/91 H 80 L Departure - Departure Time of Disposition: 20:00 Disposition: ADMITTED INPATIENT Discharge Problem: Acute exacerbation of chronic obstructive airways disease, Atrial fibrillation with RVR, Stage 5 chronic kidney disease, Pleural effusion, Chronic CHF Condition: Critical Pt referred to PMD for follow-up: Yes IPMP verified?: No Allergies/Adverse Reactions: Allergies No Known Allergies Allergy (Verified 12/14/17 18:49) Home Medications: Ambulatory Orders Metoprolol Tartrate 50 mg PO BID 10/05/17 Albuterol Sulfate [Proair Hfa] 2 puff IH Q6H #1 puff 10/29/17 Cholecalciferol (Vitamin D3) [Vitamin D3] 5,000 unit PO DAILY 12/14/17 Sodium Bicarbonate 10 gr PO TID 12/14/17 Disposition Discussed With: Patient, Family (Admit to Dr Amanda) Additional Information: SPOKE TO PATIENT REGARDING HIS CONDITION AND CHRONIC KIDNEY DISEASE OPTIONS OF DIALYSIS DISCUSSED/STATED NOT INTERESTED/ADVISED IF DECIDES TO PROCEED WITH DIALYSIS , COULD ALWAYS OPT TO DISCONTINUE ATANY TIME STATES HE IS A DNR
[2017-12-14] MEDS: CARDIZEM INJ 125 MG in SODIUM CHLORIDE 100 ML IV SCH (18:08)
--- NOTE | 2017-12-14 19:09 | DI ---
EXAM: Single view of the chest HISTORY: Shortness of breath. COMPARISON: CT chest 10/26/2017 FINDINGS: There is no pneumothorax. There is a large left consolidation and adjacent effusion. The cardiomediastinal silhouette is obscured due to consolidation and effusion. There is mild ground-gla ss and minimal blunting right costophrenic angle. There is an unchanged calcification in the right l ana lilia. The osseous structures are unremarkable. IMPRESSION: 1. Large left effusion and adjacent consolidation that may represent atelectasis or pneumonia. 2. Small right effusion with adjacent atelectasis.
[2017-12-14] MEDS ORDERED: ROCEPHIN 1 GM in SODIUM CHLORIDE 50 ML IV STA (19:46)
[2017-12-14] MEDS ORDERED: LOVENOX SUBCUT STA ×2 (19:47→19:48)
[2017-12-14] MEDS ORDERED: ROCEPHIN ONE (19:52)
[2017-12-14] MEDS ORDERED: SODIUM CHLORIDE 1,000 ML IV SCH (20:30)
[2017-12-14 22:10] VITALS: BMI 29.1
[2017-12-14] MEDS: SOLU-MEDROL 125 MG IVP SCH (22:27)
[2017-12-15] MEDS: SOLU-MEDROL 125 MG IVP SCH ×3 (05:53→20:30)
[2017-12-15] MEDS: LASIX IVP SCH (05:53)
[2017-12-15] MEDS ORDERED: COUMADIN PO STA (07:59)
[2017-12-15] MEDS: PROTONIX PO SCH ×2 (08:48→17:17)
[2017-12-15] MEDS ORDERED: NON-FORMULARY MEDICATION (Diltiazem Hcl [Diltiazem 24hr Cd] 240 MG) PO SCH (09:00)
[2017-12-15] MEDS: PROAIR HFA IH SCH ×3 (09:29→20:29)
[2017-12-15] MEDS: PROSCAR PO SCH (09:31)
[2017-12-15] MEDS: CARDIZEM CD PO SCH (09:31)
[2017-12-15] MEDS: LOPRESSOR PO SCH ×2 (09:31→20:29)
[2017-12-15] MEDS: FLOMAX PO SCH (09:31)
[2017-12-15] MEDS: NON-FORMULARY MEDICATION (Calcitriol [Calcitriol] 0.25 MCG) PO SCH (10:17)
[2017-12-15] MEDS: SODIUM CHLORIDE 1,000 ML IV SCH (11:34)
--- NOTE | 2017-12-15 11:48 | RS.PTINEVL ---
Subjective - Patient information Date of Evaluation: 12/15/17 Date of Arrival on Unit: 12/14/17 Diagnosis: acute exacerbation COPD, Afib with RVR, stage 5 kidney disease, pleural eff Usual Living Arrangement: Alone Living Arrangement Comments: no problems Home Environment: House, Stairs (few), Rail Medical History: Hypertension, COPD, CHF Medical History Comments:: bronchitis, stage 5 kidney disease, afib LATEX ALLERGY?: No Medications: see chart Subjective Information/ Patient Comments:: pt states that he has been weaker the last couple of weeks. States he has had a fall required assist to get up from floor. - Level of function Prior to this admission, the patient could do the following:: Independent ADL's , Independent Ambulation, Drive Current Level of Function: Partially Dependent Current Equipment Used at Home: walker when needed Interventions - Objective Patient Orientation: Person, Place, Time, Situation Current Interventions: IV's, Oxygen, Telemetry, Painter Catheter Range of Motion - ROM Right Upper Extremity AROM: WFL's Left Upper Extremity AROM: WFL's Right Lower Extremity AROM: WFL's Left Lower Extremity AROM: WFL's Muscle Strength - Muscle Strength Right Upper Extremity Strength: Mild Weakness Left Upper Extremity Strength: Mild Weakness (grossly 4-/5) Right Lower Extremity Strength: Mild Weakness (hip flex 4-/5, knee flex/ext 4-/5 , ankle DF/PF 4/5) Left Lower Extremity Strength: Mild Weakness (hip flex 4-/5, knee flex/ext 4-/5 , ankle DF/PF 4/5) Sensation - Sensation Right Upper Extremity Sensation: Intact/Normal Left Upper Extremity Sensation: Intact/Normal Right Lower Extremity Sensation: Intact/Normal Left Lower Extremity Sensation: Intact/Normal Palpation Palpation Findings: Tenderness (BLE) Balance - Sitting Balance and Reactions Static Sitting Balance: Good Dynamic Sitting Balance: Fair Sitting Equilibrium Reactions: Delayed Left, Delayed Right Sitting Protective Reactions: Delayed Left, Delayed Right - Standing Balance and Reactions Static Standing Balance: Fair Dynamic Standing Balance: Poor Standing Equilibrium Reactions: Delayed Left, Delayed Right Standing Protective Reactions: Delayed Left, Delayed Right Functional Mobility - Bed Mobility Rolling R/L: CGA Scooting: CGA Supine to Sit: Min Assist Sit to Supine: CGA - Transfers Sit to Stand: Min Assist Stand to Sit: CGA - Safety Awareness Safety Awareness: Fair NORMA INDEX SCORE: n/a Ambulation - Ambulation Assistive Device Used: Rolling Walker Orthotic/Prosthetic Device: No Distance: 180ft Assistance needed with Ambulation: Min Assist Gait Deviations: Forward posture, Short stride Ambulation Comments: pt amb with decreased step length, flexed posture. Factors Affecting Ambulation: Decreased Balance, Weakness, Decreased Safety, Cognitive Status, Limited Endurance Treatment time - Time with patient Length of Evaluation: 26 Total treatment time: 31 Patient Education - Education Patient Education: Home Exercise Program, Education of Plan of Care Teaching Recipient: Patient Teaching Methods: Discussion Comments: discussion regarding POC as well as safety with amb. Assessment - Assessment Problem List:: Decreased level of function, Requires training/education, Decreased safety/Risk of falls, Weakness Rehab Potential: Good Further Therapy Indicated?: Yes Candidate for Swing Bed for Therapy Services?: pt may not be a candidate for swing bed for therapy due to higher level of function. Evaluation Complexity: HISTORY: Medium (htn, chf, copd, afib), EXAM OF BODY SYSTEMS: Medium (gait, balance, strength, endurance), CLINICAL PRESENTATION: Medium (evolving), CLINICAL DECISION MAKING: Medium Short Term Goals GOAL #1: pt transfer sup to/from sit to/from stand CGA Goal to be met by: 12/18/17 GOAL #2: pt independent with rolling and scooting up in bed Goal to be met by: 12/18/17 GOAL #3: pt amb with rwx with CGA with no LOB 200ft Goal to be met by: 12/18/17 Theology Teacher Goals GOAL #1: Transfer sup to/from sit to/from stand SBA Goal to be met by: 12/21/17 GOAL #2: pt amb with rwx functional household distances SBA with no LOB Goal to be met by: 12/21/17 GOAL #3: pt with improved BLE strength 4 to 4+/5 Goal to be met by: 12/21/17 Plan Plan of Care: Therapeutic EX, Therapeutic Activity Other:: gait training Frequency of Treatment: 1-2 X day, as tolerated Duration of Treatment: 6 days Anticipated Discharge Destination: Home Treatment Diagnosis (ICD 10 Codes): r 26.2 difficulty walking. R 26.81 balance impaired Has the Physician been added for Co-signature?: Yes
[2017-12-15] MEDS: SODIUM BICARBONATE PO SCH ×2 (11:57→17:17)
[2017-12-15] MEDS ORDERED: SODIUM BICARBONATE PO SCH (12:00)
[2017-12-15] MEDS ORDERED: SODIUM BICARBONATE 7.5% IVP STA (17:13)
[2017-12-15] MEDS: CARDIZEM INJ 125 MG in SODIUM CHLORIDE 100 ML IV SCH (17:43)
[2017-12-16] MEDS: SOLU-MEDROL 125 MG IVP SCH ×2 (05:54→14:02)
[2017-12-16] MEDS: PROTONIX PO SCH ×2 (05:54→17:37)
[2017-12-16] MEDS: LASIX IVP SCH (05:54)
[2017-12-16] MEDS: PROAIR HFA IH SCH ×3 (05:55→14:02)
[2017-12-16] MEDS: CARDIZEM INJ 125 MG in SODIUM CHLORIDE 100 ML IV SCH (07:49)
[2017-12-16] MEDS: PROSCAR PO SCH (09:01)
[2017-12-16] MEDS: LOPRESSOR PO SCH (09:01)
[2017-12-16] MEDS: NON-FORMULARY MEDICATION (Calcitriol [Calcitriol] 0.25 MCG) PO SCH (09:01)
[2017-12-16] MEDS: SODIUM CHLORIDE 1,000 ML IV SCH (09:01)
[2017-12-16] MEDS: FLOMAX PO SCH (09:01)
[2017-12-16] MEDS: SODIUM BICARBONATE PO SCH ×3 (09:01→17:37)
[2017-12-16] MEDS: CARDIZEM CD PO SCH (09:02)
--- NOTE | 2017-12-16 09:24 | HP ---
DATE OF SERVICE: 12/14/17 CHIEF COMPLAINT: Shortness of breath HISTORY OF PRESENT ILLNESS: This is a 72 year old male came to the emergency room with cough, congestion and shortness of breath. The patient was called to the office early, came to the office walking where he seemed to be in acute respiratory distress and advised the patient to go to the emergency room. The patient went to the emergency room and temperature was 100, saturation was 70 on the room air, blood pressure 192, respiratory rate 30. The patient was seen by Dr. Beach in the emergency room. WBC was 13,000 with left shift. PT/INR 196, D-Dimer was highly elevated. ABG done showed the pH 7.321, pCO2 23.7, pO2 44, sodium 132, potassium 5.2, BUN 82, creatinine 6.14 and glucose 188. AST and ALT elevated and BNP 6,665. Chest x-ray showed left lower lobe pleural effusion with atelectasis. At that time the patient was given breathing treatment and being admitted to the hospital for IV antibiotics, breathing treatments and IV fluid management. REVIEW OF SYSTEMS: CONSTITUTIONAL: No fever, no chills. Weakness and tiredness. HEENT: Normal. ENDOCRINE: No weight gain; no weight loss. CVS: No chest pain. No PND, no orthopnea. Shortness of breath. No PND, no orthopnea. RESPIRATORY: Cough, Congestion. No hemoptysis. GI: No nausea, no vomiting. No abdominal pain. No melena. : No hematuria. No polyuria. MUSCULOSKELETAL: No joint swelling. PSYCHIATRIC: Not anxious. No depression. No suicidal thoughts. No homicidal thoughts. SKIN: Intact, no open lesions. PAST MEDICAL HISTORY: Coronary artery disease with systolic ejection fraction 25-30% History of pulmonary embolism Acute on chronic kidney disease BPH Elevated PSA, sees Dr. Díaz DVT, on Coumadin Atrial fibrillation Anemia BPH PAST SURGICAL HISTORY: None PERSONAL HISTORY: The patient does not smoke or drink and lives by himself. FAMILY HISTORY: Heart problems Diabetes MEDICATIONS: Metoprolol ProAir Calcitriol Flomax Proscar Coumadin Diltiazem Vitamin D3 Sodium Bicarbonate ALLERGIES: No known allergies PHYSICAL EXAMINATION: V/S: Blood pressure 121/91, respiratory rate 28, heart rate 110, temperature 100. GENERAL: Sick looking male laying in the bed. HEENT: Atraumatic, normocephalic. No scleral icterus. Mucosa dry. NECK: Supple. No JVD, no bruit. No lymphadenopathy. No thyromegaly. HEART: S1, S2 normal. No murmur. No cyanosis or clubbing. No ascites. LUNGS: Decreased and basilar crackles. Mild expiratory wheeze. No rales or rhonchi. ABDOMEN: Soft, nontender. Bowel sounds are active. No CVA tenderness. No rigidity or guarding. EXTREMITIES: 1+ pedal edema. No cyanosis or clubbing MUSCULOSKELETAL: Normal joints, no swelling. NEUROLOGIC: The patient is awake and alert SKIN: Intact; no open lesions. LYMPHATIC: No lymph nodes palpable. LABS: Sodium 132, potassium 5.2, chloride 104, bicarb 14, BUN 82, creatinine 6.12 and glucose 188, AST 186, ALT 276, BNP 6,665, WBC 13.38, hgb 10.0, hct 28.9, plt count 206, ABG showed the pH 7.321, pCO2 23.7, pO2 44. ASSESSMENT: 1. Acute on chronic renal failure 2. Acute on chronic systolic heart failure 3. COPD Exacerbation secondary to the pneumonia 4. Pleural effusion 5. Pulmonary embolism 6. Impaired systolic heart function with ejection fraction 25-30 7. PE and DVT on prison anticoagulation 8. Atrial fibrillation PLAN: 1. Admit the patient to the SCU 2. IV fluids at 70cc ml per hour 3. Daily I&O 4. Rocephin 1 gram daily 5. DUO NEBS 6. Steroids 7. Continue home medication TIME SPENT: More than 75 minutes critical care time. ANNETTA
--- NOTE | 2017-12-16 09:38 | PN ---
DATE OF SERVICE: 12/15/17 SUBJECTIVE: The patient was admitted with the COPD exacerbation, acute on chronic renal failure and acute on chronic heart failure. Hgb dropped to 10 to 8.7. BUN and creatinine is steady. Saturation is better and breathing is better. REVIEW OF SYSTEMS: CONSTITUTIONAL: No fever, no chills. HEENT: Normal. ENDOCRINE: No weight gain, no weight loss. CVS: No angina symptoms. No CHF symptoms. No palpitations. No atypical chest pain for CAD. No shortness of breath. No PND, no orthopnea. RESPIRATORY: Still coughing and congested, no hemoptysis. GI: No nausea, no vomiting. No abdominal pain. : No hematuria. No polyuria. MUSCULOSKELETAL: No joint swelling. PSYCHIATRIC: Not anxious. No depression. No suicidal thoughts. No homicidal thoughts. SKIN: Intact. No rash. PHYSICAL EXAMINATION: V/S: Blood pressure 115/73, respiratory rate 18, heart rate 92, temperature 97.7 with saturation 98 % on 3 liters. HEENT: Normocephalic, atraumatic. Mucosa dry. Pallor positive. NECK: Supple. No JVD, no carotid bruit. No lymphadenopathy. LUNGS: Decreased and basilar crackles. Clear to auscultation. No rales or rhonchi. HEART: S1, S2 normal. No S3. No murmur, gallop or regurgitation. ABDOMEN: Soft, nontender. Bowel sounds active. No rigidity. No rebound or guarding. No CVA tenderness. EXTREMITIES: No cyanosis, clubbing or pedal edema. MUSCULOSKELETAL: No joint swelling. NEUROLOGIC: Awake, alert. No focal deficit. LYMPHATIC: No lymph nodes palpable. SKIN: Intact. LABS: Sodium 134, potassium 4.5, chloride 107, bicarb 14, BUN 89, creatinine 6.44, AST 190, ALT 250, WBC 8.87, hgb 8.7, hct 25.3, plt count 158. ASSESSMENT: 1. Acute on chronic renal failure 2. Acute on chronic heart failure 3. COPD exacerbation secondary to the pneumonia 4. Atrial fibrillation 5. Metabolic acidosis PLAN: 1. Continue Rocephin 1 gram daily 2. Breathing treatment 3. Daily I&O's TIME SPENT: More than 35 minutes MTDD
--- NOTE | 2017-12-16 11:26 | RS.OTINEVL ---
Subjective - Patient information Date of Evaluation: 12/16/17 Date of Arrival on Unit: 12/14/17 Admitted From:: Emergency Dept Usual Living Arrangement: Alone Living Arrangement Comments: no problems Home Environment: House, Stairs (few), Rail Medical History: Hypertension, COPD, CHF Medical History Comments:: bronchitis, stage 5 kidney disease, afib LATEX ALLERGY?: No Medications: see chart Subjective Information/ Patient Comments:: "I live in the [facility]." "My nephew lives close by. I have a trailer." - Level of function Prior to this admission, the patient could do the following:: Independent ADL's , Independent Ambulation, Drive Abilities prior to this admission: Pt was living alone and driving his car. Patient reports he cooks and would welcome some help cleaning his home. Pt reports he just got weak and now his legs are sore. Patient lives in a trailer and has 3 steps with a rail to enter his home. Pt wears a ponce catheter at all times. SOA with activity. Current Equipment Used at Home: walker when needed Pain Assessment - Pain Pain Score: 0 Interventions - Objective Patient Orientation: Person, Place, Time, Situation Current Interventions: IV's, Oxygen, Telemetry, Ponce Catheter Observation: Pt reports his legs are weak. Pt is oriented x 4. Pt is having difficulty with transfers. Interventions - ROM Right Upper Extremity AROM: WFL's Left Upper Extremity AROM: WFL's - Strength Right Upper Extremity Strength: Mild Weakness Left Upper Extremity Strength: Mild Weakness - Sensation Right Upper Extremity Sensation: Intact/Normal Left Upper Extremity Sensation: Intact/Normal Balance - Sitting Balance Static Sitting Balance: Fair Dynamic Sitting Balance: Fair - Standing Balance Static Standing Balance: Poor Dynamic Standing Balance: Poor ADL Skills - Self Feeding Self Feeding: Independent - Grooming Grooming: CGA - Bathing Bathing UE: CGA Bathing LE: CGA - Dressing Dressing UE: CGA Dressing LE: CGA - Toilet Management Toileting Management: CGA Functional Mobility - Bed Mobility Rolling R/L: Supervision, CGA Scooting: Supervision, CGA Supine to Sit: Min Assist Sit to Supine: CGA - Transfers Sit to Stand: Min Assist Stand to Sit: Min Assist Stand Pivot Transfers: Min Assist - Ambulation Weight Bearing Status: FWB Assistive Device Used: Rolling Walker Assistance needed with Ambulation: Min Assist, 2 person assist - Safety Awareness Safety Awareness: Good NORMA INDEX SCORE: . Additional Treatment Performed - Time with patient Length of Evaluation: 20 Total treatment time: 22 Activities Do you have difficulty with your vision?: Yes (Wears glasses) Patient Interests:: Watching Television, Visiting/Socializing Patient Education Patient Education: Home Safety, Education of Plan of Care Teaching Recipient: Patient Teaching Methods: Discussion Assessment Problem List:: Decreased level of function Rehab Potential: Good Further Therapy Indicated?: Yes Evaluation Complexity: HISTORY: Medium, EXAM OF BODY SYSTEMS: Medium, CLINICAL DECISION MAKING: Medium Short Term Goals - Goals GOAL 1: Pt to tolerate standing sink level ADLS CGA. Goal to be met by: 12/20/17 GOAL 2: Pt to tolerate 15 minutes of dyn. std. ballance for self care. Goal to be met by: 12/21/17 GOAL 3: Pt to increase functional mobility to CGA. Goal to be met by: 12/21/17 Supervisor [employer] Goals GOAL 1: Pt to be independent with self care management. Goal to be met by: 12/22/17 GOAL 2: Pt to tolerate 20 minutes of dyn. std. ballance for self care. Goal to be met by: 12/22/17 GOAL 3: Pt to increase functional mobility to Indep. Goal to be met by: 12/22/17 Plan Plan of Care: Therapeutic EX, Neuromuscular Re-Educ, Therapeutic Activity, Self- Care/Home Management Frequency of Treatment: 1-2 X day, as tolerated Duration of Treatment: 2 Weeks Anticipated Discharge Destination: Home Treatment Diagnosis (ICD 10 Codes): M62.81 Muscle Weakness, Z74.0 Reduced mobility Has the Physician been added for Co-signature?: Yes
[2017-12-16] MEDS: COUMADIN PO SCH (17:37)
[2017-12-16] MEDS ORDERED: TYLENOL ONE ×2 (21:49→21:55)
[2017-12-16] MEDS ORDERED: MORPHINE 2 MG/ML SYRINGE ONE ×2 (21:49→21:55)
[2017-12-16] MEDS ORDERED: LASIX ONE ×2 (21:50→21:55)
[2017-12-17] MEDS: LOPRESSOR PO SCH ×3 (03:51→21:08)
[2017-12-17] MEDS: SOLU-MEDROL 125 MG IVP SCH ×4 (03:51→21:08)
[2017-12-17] MEDS: PROAIR HFA IH SCH ×5 (03:51→21:07)
[2017-12-17] MEDS ORDERED: LASIX IVP STA (05:45)
[2017-12-17] MEDS: SODIUM CHLORIDE 1,000 ML IV SCH (05:46)
[2017-12-17] MEDS: PROTONIX PO SCH ×2 (05:49→16:20)
[2017-12-17] MEDS: NON-FORMULARY MEDICATION (Calcitriol [Calcitriol] 0.25 MCG) PO SCH (08:38)
[2017-12-17] MEDS: CARDIZEM CD PO SCH (08:38)
[2017-12-17] MEDS: FLOMAX PO SCH (08:38)
[2017-12-17] MEDS: SODIUM BICARBONATE PO SCH ×4 (08:38→16:37)
[2017-12-17] MEDS: PROSCAR PO SCH (08:38)
--- NOTE | 2017-12-17 13:56 | PN ---
DATE OF SERVICE: 12/16/17 SUBJECTIVE: The patient was admitted with acute shortness of breath with hypoxemic respiratory failure, COPD exacerbation. The patient is still in respiratory distress. BUN and creatinine are elevated, did not want to get hemodialysis done , very reluctant. Severe and guarded prognosis have been discussed, verbalized understanding. REVIEW OF SYSTEMS: CONSTITUTIONAL: No fever, no chills. HEENT: Normal. ENDOCRINE: No weight gain, no weight loss. CVS: No angina symptoms. No CHF symptoms. No palpitations. No atypical chest pain for CAD. Shortness of breath. No PND, no orthopnea. RESPIRATORY: No cough, no hemoptysis. GI: No nausea, no vomiting. No abdominal pain. : No hematuria. No polyuria. MUSCULOSKELETAL: No joint swelling. PSYCHIATRIC: Not anxious. No depression. No suicidal thoughts. No homicidal thoughts. SKIN: Intact. No rash. PHYSICAL EXAMINATION: GENERAL: Sick looking male lying in bed. V/S: BP 106/76, respiratory rate 22, heart rate 86, temperature 98.6, saturation 94. HEENT: Normocephalic, atraumatic. Mucosa dry. Pallor positive. NECK: Supple. No JVD, no carotid bruit. No lymphadenopathy. LUNGS: Decreased with basilar crackles. Mild expiratory wheeze. HEART: S1, S2 normal. No S3. No murmur, gallop or regurgitation. ABDOMEN: Soft, nontender. Bowel sounds active. No rigidity. No rebound or guarding. No CVA tenderness. EXTREMITIES: 1+ edema. No cyanosis or clubbing. MUSCULOSKELETAL: No joint swelling. NEUROLOGIC: Awake, alert. No focal deficit. LYMPHATIC: No lymph nodes palpable. SKIN: Intact. LABS: Sodium 136, potassium 108, bicarb 17, BUN 94, creatinine 6.47, glucose 165. AST 62, ALT 183. White count 15.89, hemoglobin 8.7, hematocrit 25.3, platelet count 178. ASSESSMENT: 1. HYPOXEMIC RESPIRATORY FAILURE 2. LEFT LOWER LOBE PNEUMONIA 3. PLEURAL EFFUSION 4. ACUTE ON CHRONIC HEART FAILURE 5. ACUTE ON CHRONIC RENAL FAILURE 6. DVT 7. PE 8. ATRIAL FIBRILLATION 9. DILATED CARDIOMYOPATHY WITH SEVERELY COMPROMISED EJECTION FRACTION AROUND 25 TO PLAN: 1. Continue breathing treatments 2. Steroids 3. Decrease IV fluids to 40 mL/hr 4. Stop IV Lasix 5. Daily I & O's 6. Poor prognosis discussed TIME SPENT: More than 35 minutes MTDD
--- NOTE | 2017-12-17 14:17 | PN ---
DATE OF SERVICE: 12/17/17 SUBJECTIVE: The patient was admitted from the emergency room for the hypoxemic respiratory failure and pneumonia, acute on chronic renal failure, acute on chronic heart failure and mild respiratory distress. The patient is reluctant to have hemodialysis. The patient's sister and family are here and aware of it. Poor prognosis has been discussed. REVIEW OF SYSTEMS: CONSTITUTIONAL: No fever, no chills. HEENT: Normal. ENDOCRINE: No weight gain, no weight loss. CVS: No angina symptoms. No CHF symptoms. No palpitations. No atypical chest pain for CAD. Mild respiratory distress. No PND, no orthopnea. RESPIRATORY: No cough, no hemoptysis. GI: No nausea, no vomiting. No abdominal pain. : No hematuria. No polyuria. MUSCULOSKELETAL: No joint swelling. PSYCHIATRIC: Not anxious. No depression. No suicidal thoughts. No homicidal thoughts. SKIN: Intact. No rash. PHYSICAL EXAMINATION: V/S: BP 127/75, respiratory rate 24, heart rate 88, temperature 98.5, saturation 92 on 2L. GENERAL: Sick looking male lying in bed in mild respiratory distress. HEENT: Normocephalic, atraumatic. Mucosa dry. Pallor positive. No icterus. NECK: Supple. No JVD, no carotid bruit. No lymphadenopathy. LUNGS: Decreased breath sounds with basilar crackles. Mild expiratory wheeze. HEART: S1, S2 normal. No S3. No murmur, gallop or regurgitation. ABDOMEN: Soft, nontender. Bowel sounds active. No rigidity. No rebound or guarding. No CVA tenderness. EXTREMITIES: 1+ edema. No cyanosis or clubbing. MUSCULOSKELETAL: No joint swelling. NEUROLOGIC: Awake, alert. No focal deficit. LYMPHATIC: No lymph nodes palpable. SKIN: Intact. LABS: White count 13.89, hemoglobin 8.7, hematocrit 25.3, platelet count 178. Sodium 136, potassium 4.4, chloride 108, bicarb 17, BUN 94, creatinine 6.47, glucose 165. ASSESSMENT: 1. ACUTE ON CHRONIC RENAL FAILURE 2. HYPOXEMIC RESPIRATORY FAILURE 3. PNEUMONIA, LEFT LOWER LOBE 4. LEFT LOWER LOBE PLEURAL EFFUSION 5. ACUTE ON CHRONIC HEART FAILURE 6. SEVERE DILATED ISCHEMIC CARDIOMYOPATHY WITH EJECTION FRACTION OF 27 7. ELEVATED LIVER ENZYMES REFUSING HEMODIALYSIS AND AGGRESSIVE CARE PLAN: 1. Continue the Rocephin 2. Duonebs 3. Steroids 4. Daily I & O's 5. Poor prognosis discussed with patient and family, verbalized understanding TIME SPENT: More than 35 minutes MTDD
[2017-12-17] MEDS: TYLENOL PO PRN ×2 (16:19→23:56)
[2017-12-17] MEDS: COUMADIN PO SCH (16:20)
[2017-12-17] MEDS: ZOSYN 2.25 GM 2.25 GM in SODIUM CHLORIDE 50 ML IV SCH (21:07)
[2017-12-17] MEDS: TESSALON PERLES PO SCH (21:08)
[2017-12-18] MEDS: ZOSYN 2.25 GM 2.25 GM in SODIUM CHLORIDE 50 ML IV SCH ×6 (00:30→23:09)
[2017-12-18] MEDS: SOLU-MEDROL 125 MG IVP SCH ×3 (06:31→20:48)
[2017-12-18] MEDS: PROAIR HFA IH SCH ×4 (06:32→20:42)
[2017-12-18] MEDS: PROTONIX PO SCH ×2 (06:32→17:37)
[2017-12-18] MEDS ORDERED: ZOSYN 2.25 GM 2.25 GM in SODIUM CHLORIDE 50 ML IV STA (07:53)
[2017-12-18] MEDS: NON-FORMULARY MEDICATION (Calcitriol [Calcitriol] 0.25 MCG) PO SCH (09:10)
[2017-12-18] MEDS: SODIUM BICARBONATE PO SCH ×3 (09:10→17:37)
[2017-12-18] MEDS: FLOMAX PO SCH (09:10)
[2017-12-18] MEDS: CARDIZEM CD PO SCH (09:10)
[2017-12-18] MEDS: TESSALON PERLES PO SCH ×3 (09:10→20:47)
[2017-12-18] MEDS: LOPRESSOR PO SCH ×2 (09:11→20:47)
[2017-12-18] MEDS: PROSCAR PO SCH (09:11)
[2017-12-18] MEDS: TYLENOL PO PRN ×2 (11:09→21:59)
[2017-12-18] MEDS ORDERED: MORPHINE 2 MG/ML SYRINGE IVP STA (11:44)
[2017-12-18] MEDS: DUONEB NEB SCH ×3 (14:13→21:25)
[2017-12-18] MEDS: ZYVOX 600 MG in PREMIX 300 ML WATER 1 BAG IV SCH ×2 (14:46→20:43)
[2017-12-18] MEDS ORDERED: SODIUM BICARBONATE 7.5% IVP STA (15:03)
[2017-12-18] MEDS: HUMULIN R SUBCUT PRN ×2 (17:37→20:48)
[2017-12-18] MEDS ORDERED: SODIUM CHLORIDE 1,000 ML IV SCH (18:00)
[2017-12-18] MEDS ORDERED: ATIVAN PO SCH (21:00)
[2017-12-19] MEDS: DUONEB NEB SCH ×6 (01:09→21:38)
[2017-12-19] MEDS: PROAIR HFA IH SCH ×4 (03:50→20:53)
[2017-12-19] MEDS: SOLU-MEDROL 125 MG IVP SCH ×3 (05:33→20:52)
[2017-12-19] MEDS: PROTONIX PO SCH ×2 (05:34→16:53)
[2017-12-19] MEDS: ZOSYN 2.25 GM 2.25 GM in SODIUM CHLORIDE 50 ML IV SCH ×4 (05:34→23:16)
[2017-12-19] MEDS: HUMULIN R SUBCUT PRN ×4 (07:01→20:53)
[2017-12-19] MEDS: FLOMAX PO SCH (10:08)
[2017-12-19] MEDS: SODIUM BICARBONATE PO SCH ×3 (10:08→16:53)
[2017-12-19] MEDS: CARDIZEM CD PO SCH (10:08)
[2017-12-19] MEDS: ZYVOX 600 MG in PREMIX 300 ML WATER 1 BAG IV SCH ×2 (10:08→20:53)
[2017-12-19] MEDS: NON-FORMULARY MEDICATION (Calcitriol [Calcitriol] 0.25 MCG) PO SCH (10:08)
[2017-12-19] MEDS: LOPRESSOR PO SCH ×2 (10:09→20:53)
[2017-12-19] MEDS: PROSCAR PO SCH (10:09)
[2017-12-19] MEDS: TESSALON PERLES PO SCH ×3 (10:09→20:53)
[2017-12-20] MEDS: DUONEB NEB SCH ×6 (01:50→21:53)
[2017-12-20] MEDS: PROAIR HFA IH SCH ×4 (03:33→21:26)
[2017-12-20] MEDS: PROTONIX PO SCH ×2 (05:33→16:53)
[2017-12-20] MEDS: ZOSYN 2.25 GM 2.25 GM in SODIUM CHLORIDE 50 ML IV SCH ×3 (05:33→17:20)
[2017-12-20] MEDS: SOLU-MEDROL 125 MG IVP SCH ×3 (05:33→21:33)
[2017-12-20] MEDS: HUMULIN R SUBCUT PRN ×4 (05:33→21:33)
[2017-12-20] MEDS ORDERED: VITAMIN K IM STA (08:24)
[2017-12-20] MEDS: TESSALON PERLES PO SCH ×3 (08:28→21:26)
[2017-12-20] MEDS: FLOMAX PO SCH (08:28)
[2017-12-20] MEDS: NON-FORMULARY MEDICATION (Calcitriol [Calcitriol] 0.25 MCG) PO SCH (08:28)
[2017-12-20] MEDS: CARDIZEM CD PO SCH (08:28)
[2017-12-20] MEDS: LOPRESSOR PO SCH ×2 (08:29→22:51)
[2017-12-20] MEDS: SODIUM BICARBONATE PO SCH ×3 (08:29→16:53)
[2017-12-20] MEDS: PROSCAR PO SCH (08:29)
[2017-12-20] MEDS: ZYVOX 600 MG in PREMIX 300 ML WATER 1 BAG IV SCH ×2 (08:31→21:26)
--- NOTE | 2017-12-20 13:01 | PN ---
DATE OF SERVICE: 12/17/17 SUBJECTIVE: The patient is admitted with acute respiratory failure, still cough, congestion and shortness of breath. Condition worsened overnight and the patient had to be given an extra dose of Lasix and he had a urine output of 800 mL overnight. Breathing 34 per minute on non rebreather. He still doesn't want to have hemodialysis or aggressive management at this time. REVIEW OF SYSTEMS: CONSTITUTIONAL: No fever, no chills. HEENT: Normal. ENDOCRINE: No weight gain, no weight loss. CVS: Shortness of breath. No angina symptoms. No CHF symptoms. No palpitations. No atypical chest pain for CAD. No PND, no orthopnea. RESPIRATORY: Cough and congestion. No hemoptysis. GI: No nausea, no vomiting. No abdominal pain. : No hematuria. No polyuria. MUSCULOSKELETAL: No joint swelling. PSYCHIATRIC: Not anxious. No depression. No suicidal thoughts. No homicidal thoughts. SKIN: Intact. No rash. PHYSICAL EXAMINATION: V/S: BP 124/72, respiratory rate 27, heart rate 95, temperature 99.6, saturation 95 on 15L. HEENT: Normocephalic, atraumatic. Mucosa dry. Pallor positive. No icterus. NECK: Supple. No JVD, no carotid bruit. No lymphadenopathy. LUNGS: Decreased with basilar crackles. Mild expiratory wheeze. HEART: S1, S2 normal. No S3. No murmur, gallop or regurgitation. ABDOMEN: Soft, nontender. Bowel sounds active. No rigidity. No rebound or guarding. No CVA tenderness. EXTREMITIES: 1+ edema. No cyanosis or clubbing. MUSCULOSKELETAL: No joint swelling. NEUROLOGIC: Awake, alert. No focal deficit. LYMPHATIC: No lymph nodes palpable. SKIN: Intact. LABS: White count 19.1, hemoglobin 9.6, hematocrit 27.4, platelet count 188. Sodium 133, potassium 4.4, chloride 103, bicarb 16, BUN 97, creatinine 6.35, AST 65, ALT 189. ASSESSMENT: 1. ACUTE ON CHRONIC RENAL FAILURE 2. ACUTE RESPIRATORY FAILURE 3. HYPOXEMIA 4. PLEURAL EFFUSION 5. CHRONIC KIDNEY DISEASE 6. RESPIRATORY FAILURE 7. ANEMIA 8. CAD 9. ATRIAL FIBRILLATION 10. EJECTION FRACTION 20% 11. DVT 12. PULMONARY EMBOLISM 13. POSTOBSTRUCTIVE UROPATHY 14. BPH, ELEVATED PSA, DR. MOLINA 15. COPD 16. NONCOMPLIANCE PLAN: 1. Lasix discontinued 2. Solu-Medrol 3. IV fluids at 50 mL/hr 4. Resume home medications including Coumadin 5. PT/INR 6. Telemetry 7. Oxygen Poor prognosis discussed with family and patient, verbalized understanding. The patient still does not want any aggressive management like hemodialysis at this time but given patient's poor ejection fraction of 20% and would be very difficult with hemodialysis. TIME SPENT: More than 35 to 40 minutes, critical care time MTDD
--- NOTE | 2017-12-20 13:27 | PN ---
DATE OF SERVICE: 12/18/17 SUBJECTIVE: The patient was admitted with acute on chronic renal failure, still coughing, congestion with yellow-green, bloody sputum, shortness of breath. Saturations are in the 70s with non rebreather and 15L. Temperature went up to 100.6. The patient's daughter, Lorelei is at bedside, still don't want any aggressive management like hemodialysis or transferring patient to higher care center like [facility]. Discussed poor prognosis of the patient, verbalized understanding. REVIEW OF SYSTEMS: CONSTITUTIONAL: No fever, no chills. HEENT: Normal. ENDOCRINE: No weight gain, no weight loss. CVS: No angina symptoms. No CHF symptoms. No palpitations. No atypical chest pain for CAD. Shortness of breath. No PND, no orthopnea. RESPIRATORY: Cough, congestion. Cough productive of yellow-green, bloody sputum. GI: No nausea, no vomiting. No abdominal pain. : No hematuria. No polyuria. MUSCULOSKELETAL: No joint swelling. PSYCHIATRIC: Not anxious. No depression. No suicidal thoughts. No homicidal thoughts. SKIN: Intact. No rash. PHYSICAL EXAMINATION: V/S: BP 96/51, respiratory rate 18, heart rate 91, temperature 98.9, saturation 76 on 5L. GENERAL: Sick looking male lying in bed. HEENT: Normocephalic, atraumatic. Mucosa dry, pallor positive. No icterus. NECK: Supple. No JVD, no carotid bruit. No lymphadenopathy. LUNGS: Basilar crackles. Expiratory wheezing. HEART: S1, S2 normal. No S3. No murmur, gallop or regurgitation. ABDOMEN: Soft, nontender. Bowel sounds active. No rigidity. No rebound or guarding. No CVA tenderness. EXTREMITIES: No cyanosis, clubbing or pedal edema. MUSCULOSKELETAL: No joint swelling. NEUROLOGIC: Awake, alert. No focal deficit. LYMPHATIC: No lymph nodes palpable. SKIN: Intact. LABS: White count 18.86, hemoglobin 9.5, hematocrit 27.2, platelet count 174. Sodium 129, potassium 4.1, chloride 100, bicarb 16, BUN 96, creatinine 6.24, glucose 204. AST 100, ALT 255. ASSESSMENT: 1. ACUTE ON CHRONIC HEART FAILURE 2. PNEUMONIA 3. URINARY TRACT INFECTION 4. ACUTE ON CHRONIC RENAL FAILURE 5. COUMADIN COAGULOPATHY 6. ATRIAL FIBRILLATION 7. SYSTOLIC DYSFUNCTION WITH EJECTION FRACTION OF 25% PLAN: 1. Blood culture 2. Urine culture 3. Zosyn 4. Zyvox 5. Duonebs 6. Daily I & O's TIME SPENT: More than 35 minutes which is critical care time. MTDD
--- NOTE | 2017-12-20 13:45 | PN ---
DATE OF SERVICE: 12/19/17 SUBJECTIVE: The patient is breathing some better today, still coughing with congestion. No blood in the sputum. The patient's daughter is in the room. Reassured the family. The patient's urine output was good yesterday 3150 mL. The patient was started on IV fluids yesterday, 40 mL/hr. Saturation is around 80 on nonrebreather. REVIEW OF SYSTEMS: CONSTITUTIONAL: No fever, no chills. HEENT: Normal. ENDOCRINE: No weight gain, no weight loss. CVS: No angina symptoms. No CHF symptoms. No palpitations. No atypical chest pain for CAD. Shortness of breath - breathing is better. No PND, no orthopnea. RESPIRATORY: Cough and congestion. No hemoptysis. GI: No nausea, no vomiting. No abdominal pain. : No hematuria. No polyuria. MUSCULOSKELETAL: No joint swelling. PSYCHIATRIC: Not anxious. No depression. No suicidal thoughts. No homicidal thoughts. SKIN: Intact. No rash. PHYSICAL EXAMINATION: V/S: BP 106/73, respiratory rate 27, heart rate 111, temperature 97.8, saturation 88 on non rebreather. HEENT: Normocephalic, atraumatic. Mucosa dry. Pallor positive. NECK: Supple. No JVD, no carotid bruit. No lymphadenopathy. LUNGS: Decreased breath sounds with basilar crackles. Mild expiratory wheeze. HEART: S1, S2 normal. No S3. No murmur, gallop or regurgitation. ABDOMEN: Soft, nontender. Bowel sounds active. No rigidity. No rebound or guarding. No CVA tenderness. EXTREMITIES: 1+ edema. No cyanosis or clubbing. MUSCULOSKELETAL: No joint swelling. NEUROLOGIC: Awake, alert. No focal deficit. LYMPHATIC: No lymph nodes palpable. SKIN: Intact. LABS: White count 15.55, hemoglobin 9.3, hematocrit 26.5, platelet count 177. Sodium 131, potassium 3.8, chloride 99, bicarb 17, BUN 97. Creatinine 6.31. ASSESSMENT: 1. ACUTE ON CHRONIC RENAL FAILURE 2. ACUTE HYPOXIC RESPIRATORY FAILURE 3. PNEUMONIA, COMMUNITY ACQUIRED 4. URINARY TRACT INFECTION, ORGANISM GRAM NEGATIVE RODS 5. PLEURAL EFFUSION 6. ATRIAL FIBRILLATION 7. CORONARY ARTERY DISEASE WITH SEVERE SYSTOLIC DYSFUNCTION, EJECTION FRACTION 20 8. LONGERM ANTICOAGULATION 9. DVT/PE PLAN: 1. Continue IV fluids 2. Continue Zosyn and Zyvox 3. IV fluids 4. Daily I & O's Poor prognosis has been discussed with the family, verbalized understanding. TIME SPENT: More than 35 minutes MTDD
[2017-12-20] MEDS ORDERED: LOPRESSOR PO SCH (21:00)
[2017-12-21] MEDS: ZOSYN 2.25 GM 2.25 GM in SODIUM CHLORIDE 50 ML IV SCH ×2 (00:43→05:59)
[2017-12-21] MEDS: DUONEB NEB SCH ×3 (02:05→10:20)
[2017-12-21] MEDS: PROAIR HFA IH SCH ×2 (05:37→08:23)
[2017-12-21] MEDS: PROTONIX PO SCH (05:59)
[2017-12-21] MEDS: SOLU-MEDROL 125 MG IVP SCH ×2 (05:59→12:45)
[2017-12-21] MEDS: HUMULIN R SUBCUT PRN ×2 (06:42→11:30)
[2017-12-21] MEDS: NON-FORMULARY MEDICATION (Calcitriol [Calcitriol] 0.25 MCG) PO SCH (08:22)
[2017-12-21] MEDS: LOPRESSOR PO SCH (08:23)
[2017-12-21] MEDS: SODIUM BICARBONATE PO SCH ×2 (08:23→12:45)
[2017-12-21] MEDS: FLOMAX PO SCH (08:23)
[2017-12-21] MEDS: TESSALON PERLES PO SCH (08:23)
[2017-12-21] MEDS: CARDIZEM CD PO SCH (08:23)
[2017-12-21] MEDS: PROSCAR PO SCH (08:23)
[2017-12-21] MEDS: ZYVOX 600 MG in PREMIX 300 ML WATER 1 BAG IV SCH (08:24)
[2017-12-21] MEDS ORDERED: SODIUM CHLORIDE IV SCH (09:00)
[2017-12-21] MEDS ORDERED: MAXIPIME IV SCH (09:00)
[2017-12-21 09:27] VITALS: BP 108/57; TEMP 97.3
--- NOTE | 2017-12-21 09:49 | PN ---
DATE OF SERVICE: 12/20/17 SUBJECTIVE: The patient was admitted with acute respiratory failure, pneumonia and urinary tract infection. Still coughing, congestion and shortness of breath. Urine output yesterday was 1750. REVIEW OF SYSTEMS: CONSTITUTIONAL: No fever, no chills. HEENT: Normal. ENDOCRINE: No weight gain, no weight loss. CVS: No angina symptoms. No CHF symptoms. No palpitations. No atypical chest pain for CAD. Shortness of breath. No PND, no orthopnea. RESPIRATORY: Cough, no hemoptysis. GI: No nausea, no vomiting. No abdominal pain. : No hematuria. No polyuria. MUSCULOSKELETAL: No joint swelling. PSYCHIATRIC: Not anxious. No depression. No suicidal thoughts. No homicidal thoughts. SKIN: Intact. No rash. PHYSICAL EXAMINATION: V/S: Blood pressure 94/52m, respiratory rate 29, heart rate 67, temperature 98.2 with saturation 90% on nonrebreather. GENERAL: Sick looking man lying in the bed and not in any distress. HEENT: Normocephalic, atraumatic. Mucosa dry. Pallor positive. No icterus. NECK: Supple. No JVD, no carotid bruit. No lymphadenopathy. LUNGS: Decreased and basilar crackles. Clear to auscultation. No rales or rhonchi. HEART: S1, S2 normal. No S3. No murmur, gallop or regurgitation. ABDOMEN: Soft, nontender. Bowel sounds active. No rigidity. No rebound or guarding. No CVA tenderness. EXTREMITIES: No cyanosis, clubbing or pedal edema. MUSCULOSKELETAL: No joint swelling. NEUROLOGIC: Awake, alert. No focal deficit. LYMPHATIC: No lymph nodes palpable. SKIN: Intact. LABS: WBC 19.64, hgb 9.4, hct 26.8, plt count 185, sodium 132, potassium 3.9, chloride 100, bicarb 18, BUN 102, creatinine 6.52 and glucose 170. AST 66, ALT 224 ASSESSMENT: 1. Acute hypoxemic respiratory failure 2. Acute on chronic renal failure 3. Acute on chronic heart failure 4. UTI 5. Pneumonia 6. 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 Coumadin Coagulopathy 8. Elevated liver enzymes PLAN: 1. Continue DUO NEBS 2. Linezolid 3. Solu-Medrol 4. Zosyn 5. IV fluids 6. Daily I&O 7. Poor prognosis been discussed and verbalized understanding. TIME SPENT: More than 35 minutes MTDD
--- NOTE | 2017-12-21 11:39 | DI ---
EXAM: Single view of the chest. History: Short of breath Comparison: Chest radiograph 12/14/2017. Findings: Heart is enlarged. Bilateral lung consolidation which has increased on the right and has slightly improved on the left. Moderate left pleural effusion is slightly improved compared to the p rior study. Small right pleural effusion. No pneumothorax. Atherosclerotic vascular calcifications . No acute osseous abnormalities. Impression: Cardiomegaly with pulmonary edema and left greater than right bilateral pleural effusion s. There may be underlying pneumonia.
[2017-12-21] MEDS ORDERED: DUONEB NEB SCH ×2 (12:00→18:00)
--- NOTE | 2017-12-23 14:03 | DS ---
DATE OF SERVICE: 12/21/17 FINAL DIAGNOSIS: 1. Acute on chronic heart failure 2. Hypoxemic respiratory failure secondary to pneumonia 3. Urinary tract infection 4. Acute on chronic heart failure 5. Pleural effusion bilateral 6. Respiratory failure 7. Anemia 8. CAD 9. Atrial fibrillation 10.DVT 11.Pulmonary embolism 12.Post obstructive uropathy 13.BPH seen by Dr. Díaz 14.COPD 15.Noncompliance 16.Recent UTI, Klebsiella Oxytoca DISCHARGE INSTRUCTIONS: The patient is needing persistent antibiotic use for persistent pneumonia so we will be placing the patient in the transitional care unit. Will start the patient on Cefepime. Fluids. PT/INR monitoring, diabetic management. Medication management, Telemetry, oxygen and breathing treatments. MEDICATIONS AT DISCHARGE: Solu-Medrol Zosyn DIET INSTRUCTIONS: Cardiac and healthy ACTIVITY: Complete bed rest DISEASE SPECIFIC EDUCATION: Fluid overload Renal failure Poor prognosis been discussed and verbalized understanding. HOSPITAL COURSE: Solomon Hummel who is a 72 year old male came to the emergency room with the shortness of breath, coughing and congestion and found to be in acute respiratory distress. ABG showed the pH 7.321, pCO2 23.7, pO2 44, BNP was almost 6,665 and chest x-ray showed the pulmonary pleural effusion. At that time the patient was admitted to the hospital for managing the acute on chronic heart failure. The patient's hospital stay was extensive because of the kidney function and the heart failure. The patient's ejection fraction was 20%. The patient is reluctant to get a hemodialysis done so the patient was admitted to the [facility]. BUN was 82, creatinine 6.14. The the CHF the Lasix was given. BUN ended up increasing up to 94 and creatinine 6.47. Started having fever. UTI positive and pneumonia positive. Zosyn and Zyvox was given. Breathing treatments given. Slowly and gradually the patient been progressive still having some mild respiratory distress and needing nonbreather. Repeat CAT scan showed again the pneumonia and pleural effusion. The patient again decided that he don't want to have anymore hemodialysis or heart surgeries at this time. The patient's daughter, Lorelei who is the power of asset coordinator is also available to discuss, both agreed to the fact that given his condition we will be treating the patient at the [facility] and continue the care and needing manager intermediate antibiotics at this time so the patient will be placed in the transitional care unit. TIME SPENT: MORE THAN 65 MINUTES MTDD
== END 2017-12-21 13:32 | disposition swing bed (61) | DRG 189 ==
LOC: ED 17:25 → SCU 20:41
PROVIDERS: ADMIT Emergency Medicine; ATTEND Emergency Medicine
DX: J96.91 Respiratory failure, unspecified with hypoxia (principal); J18.9 Pneumonia, unspecified organism; I26.99 Other pulmonary embolism without acute cor pulmonale; J44.1 Chronic obstructive pulmonary disease with (acute) exacerbation; J90 Pleural effusion, not elsewhere classified; E87.2 Acidosis; N18.5 Chronic kidney disease, stage 5; N17.9 Acute kidney failure, unspecified; N39.0 Urinary tract infection, site not specified; N18.9 Chronic kidney disease, unspecified; I48.91 Unspecified atrial fibrillation; I50.9 Heart failure, unspecified; I51.89 Other ill-defined heart diseases; I25.10 Atherosclerotic heart disease of native coronary artery without angina pectoris; R06.00 Dyspnea, unspecified; R53.1 Weakness; R06.2 Wheezing; R07.9 Chest pain, unspecified; R50.9 Fever, unspecified; R61 Generalized hyperhidrosis; R00.2 Palpitations; R94.5 Abnormal results of liver function studies; Z91.19 Patient's noncompliance with other medical treatment and regimen; Z79.01 Long term (current) use of anticoagulants
CPT/HCPCS: 36415; 80053; 81001; 82550; 82553; 82803; 82962; 83605; 83880; 84484; 85007; 85025; 85379; 85610; 85730; 87040; 87070; 87081; 87086; 87186; 93005; 93010; 94640; 96365; 96366; 96368; 97802; 99284

== ENCOUNTER 2017-12-21 13:56 | Inpatient (IN) ==
[2017-12-21 14:25] VITALS: BMI 29.0
[2017-12-21] MEDS: PROAIR HFA IH SCH ×2 (14:57→20:31)
[2017-12-21] MEDS: TESSALON PERLES PO SCH ×2 (14:58→20:31)
[2017-12-21] MEDS: HUMULIN R SUBCUT PRN (16:43)
[2017-12-21] MEDS: SODIUM BICARBONATE PO SCH (16:43)
[2017-12-21] MEDS: PROTONIX PO SCH (16:43)
[2017-12-21] MEDS ORDERED: ZOFRAN 4 MG/2 ML IVP PRN (17:25)
[2017-12-21] MEDS ORDERED: SODIUM BICARBONATE 650 MG PO SCH (17:30)
[2017-12-21] MEDS: SOLU-MEDROL 125 MG IVP SCH (20:30)
[2017-12-21] MEDS: ZYVOX 600 MG in PREMIX 300 ML WATER 1 BAG IV SCH (20:31)
[2017-12-21] MEDS: LOPRESSOR PO SCH (20:34)
[2017-12-21] MEDS: DUONEB NEB SCH (20:40)
[2017-12-21] MEDS ORDERED: LOPRESSOR PO SCH (21:00)
[2017-12-22] MEDS: PROAIR HFA IH SCH ×4 (04:29→20:43)
[2017-12-22] MEDS: DUONEB NEB SCH ×4 (05:01→22:08)
[2017-12-22] MEDS: SOLU-MEDROL 125 MG IVP SCH ×3 (05:47→20:43)
[2017-12-22] MEDS: PROTONIX PO SCH ×2 (05:47→16:24)
[2017-12-22] MEDS: HUMULIN R SUBCUT PRN ×4 (05:48→20:44)
[2017-12-22] MEDS: SODIUM CHLORIDE IV SCH (08:46)
[2017-12-22] MEDS: NON-FORMULARY MEDICATION (Calcitriol [Calcitriol] 0.25 MCG) PO SCH (08:46)
[2017-12-22] MEDS: MAXIPIME IV SCH (08:46)
[2017-12-22] MEDS: SODIUM CHLORIDE 1,000 ML IV SCH (08:46)
[2017-12-22] MEDS: TESSALON PERLES PO SCH ×3 (08:47→20:43)
[2017-12-22] MEDS: FLOMAX PO SCH (08:47)
[2017-12-22] MEDS: LOPRESSOR PO SCH ×2 (08:47→20:43)
[2017-12-22] MEDS: PROSCAR PO SCH (08:47)
[2017-12-22] MEDS: CARDIZEM CD PO SCH (08:48)
[2017-12-22] MEDS: SODIUM BICARBONATE PO SCH ×3 (08:48→18:37)
[2017-12-22] MEDS ORDERED: NON-FORMULARY MEDICATION (Diltiazem Hcl [Diltiazem 24hr Cd] 240 MG) PO SCH (09:00)
[2017-12-22] MEDS: ZYVOX 600 MG in PREMIX 300 ML WATER 1 BAG IV SCH ×2 (09:57→20:43)
[2017-12-22] MEDS: COUMADIN PO SCH (16:25)
[2017-12-23] MEDS: PROAIR HFA IH SCH ×4 (04:02→21:39)
[2017-12-23] MEDS: DUONEB NEB SCH ×4 (04:43→22:45)
[2017-12-23] MEDS: SOLU-MEDROL 125 MG IVP SCH ×3 (06:19→21:39)
[2017-12-23] MEDS: PROTONIX PO SCH ×2 (06:20→16:32)
[2017-12-23] MEDS: HUMULIN R SUBCUT PRN ×4 (06:20→21:42)
[2017-12-23] MEDS: ZYVOX 600 MG in PREMIX 300 ML WATER 1 BAG IV SCH ×2 (09:01→21:43)
[2017-12-23] MEDS: CARDIZEM CD PO SCH (09:03)
[2017-12-23] MEDS: SODIUM BICARBONATE PO SCH ×3 (09:03→16:33)
[2017-12-23] MEDS: TESSALON PERLES PO SCH ×3 (09:03→21:41)
[2017-12-23] MEDS: LOPRESSOR PO SCH ×2 (09:03→21:41)
[2017-12-23] MEDS: NON-FORMULARY MEDICATION (Calcitriol [Calcitriol] 0.25 MCG) PO SCH (09:04)
[2017-12-23] MEDS: PROSCAR PO SCH (09:04)
[2017-12-23] MEDS: FLOMAX PO SCH (09:04)
[2017-12-23] MEDS: MAXIPIME IV SCH (13:00)
[2017-12-23] MEDS: SODIUM CHLORIDE IV SCH (13:00)
--- NOTE | 2017-12-23 13:26 | HP ---
DATE OF SERVICE: 12/21/17 CHIEF COMPLAINT: Pneumonia, renal failure and needing continuous antibiotics. HISTORY OF PRESENT ILLNESS: Solomon Hummel who is a 72 year old male came to the emergency room with the shortness of breath, coughing and congestion and found to be in acute respiratory distress. ABG showed the pH 7.321, pCO2 23.7, pO2 44, BNP was almost 6,665 and chest x-ray showed the pulmonary pleural effusion. At that time the patient was admitted to the hospital for managing the acute on chronic heart failure. The patient's hospital stay was extensive because of the kidney function and the heart failure. The patient's ejection fraction was 20%. The patient is reluctant to get a hemodialysis done so the patient was admitted to the [place]. BUN was 82, creatinine 6.14. The the CHF the Lasix was given. BUN ended up increasing up to 94 and creatinine 6.47. Started having fever. UTI positive and pneumonia positive. Zosyn and Zyvox was given. Breathing treatments given. Slowly and gradually the patient been progressive still having some mild respiratory distress and needing nonbreather. Repeat CAT scan showed again the pneumonia and pleural effusion. The patient again decided that he don't want to have anymore hemodialysis or heart surgeries at this time. The patient's daughter, Lorelei who is the power of attorney at law is also available to discuss, both agreed to the fact that given his condition we will be treating the patient at the [facility] and continue the care and needing long-term antibiotics at this time so the patient will be placed in the transitional care unit. REVIEW OF SYSTEMS: CONSTITUTIONAL: No fever, no chills. Weakness, tiredness HEENT: Normal. ENDOCRINE: No weight gain; no weight loss. CVS: No chest pain. No PND, no orthopnea. Shortness of breath. No PND, no orthopnea. RESPIRATORY: Cough, Congestion. No hemoptysis. GI: No nausea, no vomiting. No abdominal pain. No melena. : No hematuria. No polyuria. MUSCULOSKELETAL: No joint swelling. PSYCHIATRIC: Not anxious. No depression. No suicidal thoughts. No homicidal thoughts. SKIN: Intact, no open lesions. PAST MEDICAL HISTORY: Coronary artery disease with systolic ejection fraction 25-30% History of pulmonary embolism Acute on chronic kidney disease BPH Elevated PSA, sees Dr. Díaz DVT, on Coumadin Atrial fibrillation Anemia BPH PAST SURGICAL HISTORY: None PERSONAL HISTORY: The patient does not smoke or drink and lives by himself. FAMILY HISTORY: Heart problems Diabetes MEDICATIONS: Metoprolol ProAir Calcitriol Flomax Proscar Coumadin Diltiazem Vitamin D3 Sodium Bicarbonate ALLERGIES: No known allergies PHYSICAL EXAMINATION: V/S: Blood pressure 101/60, respiratory rate 20, heart rate 78, temperature 97.6 and saturation 92 on 5 liters. HEENT: Atraumatic, normocephalic. No scleral icterus. Pallor positive. Mucosa dry. NECK: Supple. No JVD, no bruit. No lymphadenopathy. No thyromegaly. HEART: S1, S2 normal. No murmur. No cyanosis or clubbing. No ascites. LUNGS: Decreased and basilar crackles. No rales or rhonchi. ABDOMEN: Soft, nontender. Bowel sounds are active. No CVA tenderness. No rigidity or guarding. EXTREMITIES: No pedal edema. No cyanosis or clubbing MUSCULOSKELETAL: Normal joints, no swelling. NEUROLOGIC: The patient is awake and alert SKIN: Intact; no open lesions. LYMPHATIC: No lymph nodes palpable. LABS: WBC 19.77, hgb 9.2, hct 26.7, plt count 165, INR 2.43, sodium 133, potassium 4.4 , chloride 101, bicarb 18, BUN 123, creatinine 7.14, glucose 194. ASSESSMENT: 1. Bilateral pneumonia 2. Pleural effusion 3. Worsening renal failure 4. CAD 5. CHF, poor ejection fraction 20% 6. Atrial fibrillation on long-term anticoagulation 7. DVT 8. PE PLAN: 1. Zyvox 2. Daily I&O's 3. IV fluids 4. Maxipime daily 5. Solu-Medrol 125 6. Protonix Poor prognosis been discussed with the family. TIME SPENT: MORE THAN 65-70 minutes MTDD
--- NOTE | 2017-12-23 14:12 | DI ---
EXAM: Single view of the abdomen. History: Abdominal distension and weight gain. Comparison: Abdominal CT 10/26/2017 Findings: Painter catheter is seen in place. Nonspecific bowel gas pattern. There is a dilated loop of transverse colon measuring up to seven point 3 cm in caliber. Heart is enlarged and there are lef t greater than right bilateral pleural effusions. No gross free intraperitoneal air. No acute osseo us abnormalities. No suspicious calcifications seen projecting over the renal shadows. Impression: 1. Nonspecific bowel gas pattern with dilated loop of transverse colon. Consider ileus or enteritis. Follow-up recommended. 2. Painter catheter. 3. Cardiomegaly with left greater than right bilateral pleural effusions
--- NOTE | 2017-12-23 16:23 | CT ---
EXAM: CT of the abdomen pelvis with contrast History: Abdominal distension. Comparison: Abdominal radiograph 12/23/2017, CT abdomen pelvis 10/23/2017 Technique: Multiplanar CT images through the abdomen pelvis were obtained without the administration of IV contrast. Findings: Cardiomegaly with pulmonary edema and moderate to large bilateral pleural effusions. No a cute osseous abnormalities. Severe atherosclerotic vascular calcifications. Coronary calcifications. No discrete gallstones tatianna ntified by CT. No focal liver or splenic lesions. Nonspecific bilateral perinephric stranding. No hydronephrosis. Simple right renal cyst again seen. Adrenal glands are unremarkable. Mesenteric ed simba. No peripancreatic inflammation. There is small volume ascites and presacral edema. Painter cath eter within the bladder. Bladder wall is diffusely thickened. Scattered colonic stool. Colonic div erticulosis. Mildly dilated loop of transverse colon. No specific evidence for bowel obstruction. No free air. Anasarca Impression: 1. Cardiomegaly with pulmonary edema and bilateral pleural effusions. 2. Anasarca and mesenteric edema. 3. Small volume ascites. 4. Mild ileus of the transverse colon. No bowel obstruction. 5. Colonic diverticulosis. 6. Atherosclerotic vascular disease. 7. Presacral edema. 8. Painter catheter seen within the bladder. The bladder wall is thickened consistent with cystitis. 9. Nonspecific bilateral perinephric stranding. 10. Stable simple right renal cyst.
--- NOTE | 2017-12-23 16:27 | CT ---
EXAM: CT chest without contrast HISTORY: Shortness of breath COMPARISON: Same day CT abdomen pelvis and CT chest 10/26/2017 TECHNIQUE: Serial axial images of the chest were obtained from the lung apices to the upper abdomen without contrast. These were viewed in multiple planes. FINDINGS: The thyroid is normal. The visualized vessels demonstrate moderate atherosclerotic diseas e calcifications. There is no visualized aneurysm. Pulmonary arteries are prominent. Heart is mildl y enlarged with trace pericardial fluid. There are scattered mediastinal lymph nodes which are nonpat hologically enlarged. Calcified right hilar lymph nodes are present. Moderate left and small to moderate right pleural effusions are present. There is no pneumothorax. There is patchy ground-glass and consolidative opacities throughout both lungs most pronounced in the central right lung in the left lower lobe. The airways are patent. The osseous structures are unremarkable. The evaluation of the upper abdomen is better performed on same day CT. IMPRESSION: 1. Left greater than right pleural effusions with adjacent consolidations and patchy ground-glass an d consolidation that may represent pneumonia. This has mildly worsened in comparison to 10/26/2017. 2. Sequela of old granulomatous disease. 3. Mild cardiomegaly and pericardial fluid with atherosclerotic disease.
[2017-12-23] MEDS: COUMADIN PO SCH (16:33)
[2017-12-23] MEDS ORDERED: LASIX IVP STA (16:50)
[2017-12-23] MEDS ORDERED: CITRATE OF MAGNESIA PO STA (16:50)
[2017-12-24] MEDS: SODIUM CHLORIDE 1,000 ML IV SCH (02:24)
[2017-12-24] MEDS: PROAIR HFA IH SCH ×2 (04:58→08:54)
[2017-12-24] MEDS: DUONEB NEB SCH ×4 (04:58→21:39)
[2017-12-24] MEDS: HUMULIN R SUBCUT PRN ×3 (06:10→21:28)
[2017-12-24] MEDS: PROTONIX PO SCH ×2 (06:10→17:34)
[2017-12-24] MEDS: SOLU-MEDROL 125 MG IVP SCH ×3 (06:10→21:31)
[2017-12-24] MEDS ORDERED: MILK OF MAGNESIA PO STA (08:47)
[2017-12-24] MEDS ORDERED: MILK OF MAGNESIA ONE (08:49)
[2017-12-24] MEDS: ZYVOX 600 MG in PREMIX 300 ML WATER 1 BAG IV SCH ×2 (08:51→21:32)
[2017-12-24] MEDS: TESSALON PERLES PO SCH ×3 (08:52→21:31)
[2017-12-24] MEDS: NON-FORMULARY MEDICATION (Calcitriol [Calcitriol] 0.25 MCG) PO SCH (08:52)
[2017-12-24] MEDS: CARDIZEM CD PO SCH (08:52)
[2017-12-24] MEDS: SODIUM BICARBONATE PO SCH ×3 (08:52→17:34)
[2017-12-24] MEDS: LOPRESSOR PO SCH ×2 (08:53→21:32)
[2017-12-24] MEDS: PROSCAR PO SCH (08:53)
[2017-12-24] MEDS: FLOMAX PO SCH (08:53)
--- NOTE | 2017-12-24 10:40 | PN ---
DATE OF SERVICE: 12/23/17 SUBJECTIVE: The patient was admitted with renal failure and respiratory failure. The patient is still having problems with breathing, coughing, congestion and getting yellow/green phlegm. REVIEW OF SYSTEMS: CONSTITUTIONAL: No fever, no chills. HEENT: Normal. ENDOCRINE: No weight gain, no weight loss. CVS: No angina symptoms. No CHF symptoms. No palpitations. No atypical chest pain for CAD. No shortness of breath. No PND, no orthopnea. RESPIRATORY: Cough, no hemoptysis. GI: No nausea, no vomiting. No abdominal pain. : No hematuria. No polyuria. MUSCULOSKELETAL: No joint swelling. PSYCHIATRIC: Not anxious. No depression. No suicidal thoughts. No homicidal thoughts. SKIN: Intact. No rash. PHYSICAL EXAMINATION: V/S: Blood pressure 109/62, respiratory rate 18, heart rate 85, temperature 97.4 with saturation 91 on 5 liters. HEENT: Normocephalic, atraumatic. Mucosa dry. Pallor positive. No icterus. NECK: Supple. No JVD, no carotid bruit. No lymphadenopathy. LUNGS: Decreased and basilar crackles and mild expiratory wheeze. Clear to auscultation. No rales or rhonchi. HEART: S1, S2 normal. No S3. No murmur, gallop or regurgitation. ABDOMEN: Soft, nontender. Distention is present. Bowel sounds active. No rigidity. No rebound or guarding. No CVA tenderness. EXTREMITIES: No cyanosis, clubbing or pedal edema. MUSCULOSKELETAL: No joint swelling. NEUROLOGIC: Awake, alert. No focal deficit. LYMPHATIC: No lymph nodes palpable. SKIN: Intact. LABS: WBC 22.04, hgb 9.1, hct 26.2, plt count 163, sodium 132, potassium 4.7, chloride 99, bicarb 19, BUN 123, creatinine 7.60. ASSESSMENT: 1. Acute hypoxemic respiratory failure 2. Pneumonia 3. Urinary tract infection 4. Acute on chronic renal failure 5. CAD 6. CHF 7. Compromised left ventricular ejection fraction with ejection fraction 20%. 8. DVT 9. PE 10.Status post Coumadin Coagulopathy PLAN: 1. Continue the Zyvox, Primaxin 2. DUO NEBS 3. I&O's Poor prognosis been discussed with the family and verbalized understanding. TIME SPENT: More than 35 minutes MTDD
[2017-12-24] MEDS: MAXIPIME IV SCH (12:07)
[2017-12-24] MEDS: SODIUM CHLORIDE IV SCH (12:07)
[2017-12-24] MEDS: COUMADIN PO SCH (17:34)
[2017-12-25] MEDS: DUONEB NEB SCH ×4 (05:30→20:00)
[2017-12-25] MEDS: PROTONIX PO SCH ×2 (05:41→17:22)
[2017-12-25] MEDS: SOLU-MEDROL 125 MG IVP SCH ×3 (05:42→22:59)
[2017-12-25] MEDS: ZYVOX 600 MG in PREMIX 300 ML WATER 1 BAG IV SCH ×2 (08:39→21:34)
[2017-12-25] MEDS: CARDIZEM CD PO SCH (08:41)
[2017-12-25] MEDS: TESSALON PERLES PO SCH ×3 (08:41→21:34)
[2017-12-25] MEDS: NON-FORMULARY MEDICATION (Calcitriol [Calcitriol] 0.25 MCG) PO SCH (08:41)
[2017-12-25] MEDS: PROSCAR PO SCH (08:41)
[2017-12-25] MEDS: LOPRESSOR PO SCH ×2 (08:42→21:34)
[2017-12-25] MEDS: SODIUM BICARBONATE PO SCH ×3 (08:42→17:22)
[2017-12-25] MEDS: FLOMAX PO SCH (08:42)
[2017-12-25] MEDS ORDERED: DULCOLAX RC STA (10:35)
[2017-12-25] MEDS: SODIUM CHLORIDE IV SCH (11:06)
[2017-12-25] MEDS: HUMULIN R SUBCUT PRN ×3 (11:06→22:16)
[2017-12-25] MEDS: MAXIPIME IV SCH (11:06)
[2017-12-25] MEDS: SODIUM CHLORIDE 1,000 ML IV SCH (14:55)
[2017-12-25] MEDS ORDERED: LEVAQUIN 100 ML IV ONE (16:12)
[2017-12-26] MEDS: DUONEB NEB SCH ×4 (04:56→19:50)
[2017-12-26] MEDS: PROTONIX PO SCH ×2 (05:46→16:50)
[2017-12-26] MEDS: SOLU-MEDROL 125 MG IVP SCH ×3 (05:56→21:39)
[2017-12-26] MEDS ORDERED: VITAMIN K IM STA (06:22)
[2017-12-26] MEDS: HUMULIN R SUBCUT PRN ×4 (06:37→21:14)
[2017-12-26] MEDS: FLOMAX PO SCH (08:27)
[2017-12-26] MEDS: SODIUM BICARBONATE PO SCH ×3 (08:27→16:50)
[2017-12-26] MEDS: NON-FORMULARY MEDICATION (Calcitriol [Calcitriol] 0.25 MCG) PO SCH (08:27)
[2017-12-26] MEDS: ZYVOX 600 MG in PREMIX 300 ML WATER 1 BAG IV SCH ×2 (08:27→21:09)
[2017-12-26] MEDS: PROSCAR PO SCH (08:27)
[2017-12-26] MEDS: CARDIZEM CD PO SCH (08:27)
[2017-12-26] MEDS: LOPRESSOR PO SCH ×2 (08:28→21:10)
[2017-12-26] MEDS: TESSALON PERLES PO SCH ×3 (08:28→21:10)
[2017-12-26] MEDS: SODIUM CHLORIDE IV SCH (10:34)
[2017-12-26] MEDS: MAXIPIME IV SCH (10:34)
[2017-12-27] MEDS: DUONEB NEB SCH ×4 (04:55→20:05)
[2017-12-27] MEDS: SODIUM CHLORIDE 1,000 ML IV SCH (06:39)
[2017-12-27] MEDS: HUMULIN R SUBCUT PRN ×4 (06:50→20:55)
[2017-12-27] MEDS: SOLU-MEDROL 125 MG IVP SCH ×3 (07:06→20:55)
[2017-12-27] MEDS: PROTONIX PO SCH ×2 (07:06→17:21)
[2017-12-27] MEDS ORDERED: VITAMIN K IM STA ×2 (08:46→08:50)
[2017-12-27] MEDS ORDERED: KAYEXALATE SUSP PO STA (08:47)
[2017-12-27] MEDS: MAXIPIME IV SCH (09:26)
[2017-12-27] MEDS: SODIUM CHLORIDE IV SCH (09:26)
[2017-12-27] MEDS: NON-FORMULARY MEDICATION (Calcitriol [Calcitriol] 0.25 MCG) PO SCH (09:30)
[2017-12-27] MEDS: CARDIZEM CD PO SCH (09:31)
[2017-12-27] MEDS: LOPRESSOR PO SCH ×2 (09:32→20:55)
[2017-12-27] MEDS: PROSCAR PO SCH (09:32)
[2017-12-27] MEDS: FLOMAX PO SCH (09:32)
[2017-12-27] MEDS: SODIUM BICARBONATE PO SCH ×3 (09:33→17:21)
[2017-12-27] MEDS: TESSALON PERLES PO SCH ×3 (09:33→20:55)
--- NOTE | 2017-12-27 09:49 | PN ---
DATE OF SERVICE: 12/24/17 SUBJECTIVE: The patient is admitted with pneumonia and acute on chronic renal failure, urinary tract infection and pyelonephritis getting IV antibiotics. No fever. Still cough and congestion, getting short of breath. REVIEW OF SYSTEMS: CONSTITUTIONAL: No fever, no chills. HEENT: Normal. ENDOCRINE: No weight gain, no weight loss. CVS: No angina symptoms. No CHF symptoms. No palpitations. No atypical chest pain for CAD. Shortness of breath. No PND, no orthopnea. RESPIRATORY: Cough, congestion. No hemoptysis. GI: No nausea, no vomiting. No abdominal pain. : No hematuria. No polyuria. MUSCULOSKELETAL: No joint swelling. PSYCHIATRIC: Not anxious. No depression. No suicidal thoughts. No homicidal thoughts. SKIN: Intact. No rash. PHYSICAL EXAMINATION: V/S: BP 108/53, respiratory rate 19, heart rate 90, temperature 97.4, saturation 93. GENERAL: Sick looking male lying in bed. HEENT: Normocephalic, atraumatic. Mucosa dry. NECK: Supple. No JVD, no carotid bruit. No lymphadenopathy. LUNGS: Decreased with basilar crackles, expiratory wheezing. HEART: S1, S2 normal. No S3. No murmur, gallop or regurgitation. ABDOMEN: Soft, nontender. Bowel sounds active. No rigidity. No rebound or guarding. No CVA tenderness. EXTREMITIES: No cyanosis, clubbing or pedal edema. MUSCULOSKELETAL: No joint swelling. NEUROLOGIC: Awake, alert. No focal deficit. LYMPHATIC: No lymph nodes palpable. SKIN: Intact. LABS: White count 21.2, hemoglobin 9.2, hematocrit 26.1, platelet count 156. Sodium 134, potassium 4.5, chloride 101, bicarb 18, BUN 138, creatinine 7.85, glucose 192. ASSESSMENT: 1. HYPOXEMIC RESPIRATORY FAILURE 2. PNEUMONIA 3. URINARY TRACT INFECTION 4. PYELONEPHRITIS 5. ACUTE ON CHRONIC RENAL FAILURE 6. CHF 7. CORONARY ARTERY DISEASE (EJECTION FRACTION 20%) 8. ATRIAL FIBRILLATION 9. ANEMIA PLAN: 1. Continue Cefepime 2. Duonebs 3. IV fluids 4. Daily I & O's Poor prognosis has been discussed with the family, verbalized understanding. TIME SPENT: More than 35 minutes MTDD
[2017-12-27] MEDS: ZYVOX 600 MG in PREMIX 300 ML WATER 1 BAG IV SCH ×2 (11:17→20:56)
[2017-12-28] MEDS: SOLU-MEDROL 125 MG IVP SCH ×3 (04:42→21:02)
[2017-12-28] MEDS: DUONEB NEB SCH ×4 (04:50→20:55)
[2017-12-28] MEDS: PROTONIX PO SCH ×2 (06:34→16:11)
[2017-12-28] MEDS: HUMULIN R SUBCUT PRN ×4 (06:35→21:03)
[2017-12-28] MEDS ORDERED: VITAMIN K IM STA (08:44)
[2017-12-28] MEDS: SODIUM CHLORIDE IV SCH (09:59)
[2017-12-28] MEDS: MAXIPIME IV SCH (09:59)
[2017-12-28] MEDS: NON-FORMULARY MEDICATION (Calcitriol [Calcitriol] 0.25 MCG) PO SCH (09:59)
[2017-12-28] MEDS: FLOMAX PO SCH (10:00)
[2017-12-28] MEDS: SODIUM BICARBONATE PO SCH ×3 (10:00→18:30)
[2017-12-28] MEDS: LOPRESSOR PO SCH ×2 (10:00→21:03)
[2017-12-28] MEDS: PROSCAR PO SCH (10:01)
[2017-12-28] MEDS: CARDIZEM CD PO SCH (10:01)
[2017-12-28] MEDS: TESSALON PERLES PO SCH ×3 (10:01→21:03)
[2017-12-28] MEDS: ZYVOX 600 MG in PREMIX 300 ML WATER 1 BAG IV SCH ×2 (12:00→21:02)
--- NOTE | 2017-12-28 13:05 | PN ---
DATE OF SERVICE: 12/27/17 SUBJECTIVE: The patient is still coughing, congestion and shortness of breath. REVIEW OF SYSTEMS: CONSTITUTIONAL: No fever, no chills. HEENT: Normal. ENDOCRINE: No weight gain, no weight loss. CVS: No angina symptoms. No CHF symptoms. No palpitations. No atypical chest pain for CAD. Shortness of breath. No PND, no orthopnea. RESPIRATORY: Cough, no hemoptysis. GI: No nausea, no vomiting. No abdominal pain. : No hematuria. No polyuria. MUSCULOSKELETAL: No joint swelling. PSYCHIATRIC: Not anxious. No depression. No suicidal thoughts. No homicidal thoughts. SKIN: Intact. No rash. PHYSICAL EXAMINATION: V/S: blood pressure 96/51, respiratory rate 20, heart rate 75, temperature 94.4 with saturation 96%. HEENT: Normocephalic, atraumatic. Mucosa dry. NECK: Supple. No JVD, no carotid bruit. No lymphadenopathy. LUNGS: Decreased and basilar crackles. Expiratory wheezing. No rales or rhonchi. HEART: S1, S2 normal. No S3. No murmur, gallop or regurgitation. ABDOMEN: Soft, nontender. Bowel sounds active. No rigidity. No rebound or guarding. No CVA tenderness. EXTREMITIES: No cyanosis, clubbing or pedal edema. MUSCULOSKELETAL: No joint swelling. NEUROLOGIC: Awake, alert. No focal deficit. LYMPHATIC: No lymph nodes palpable. SKIN: Intact. LABS: WBC 19.22, hgb 9.0, hct 29.6, plt count 151, sodium 131, potassium 5.6, chloride 99, bicarb 18, BUN 125, creatinine 8.68 and glucose 229. ASSESSMENT: 1. Hypoxemic respiratory failure 2. Pneumonia 3. Pyelonephritis 4. Atrial fibrillation on intermediate project manager anticoagulation 5. CHF with systolic ejection fraction is 20% PLAN: 1. Continue Cefepime and Zyvox 2. Breathing treatment 3. Daily I&O's 4. Poor prognosis been discussed with the family and verbalized understanding. TIME SPENT: More than 35 minutes MTDD
--- NOTE | 2017-12-28 13:12 | PN ---
DATE OF SERVICE: 12/25/17 SUBJECTIVE: The patient was admitted with hypoxemic respiratory failure and pneumonia. The patient is still coughing and congestion. Feeling some better with fever and chills. The patient did have a urine output of 1150 yesterday which is gradually improving from the December 21 and which was only 500ml. The patient' s family is worried. REVIEW OF SYSTEMS: CONSTITUTIONAL: Fever, Chills. HEENT: Normal. ENDOCRINE: No weight gain, no weight loss. CVS: No angina symptoms. No CHF symptoms. No palpitations. No atypical chest pain for CAD. Shortness of breath. No PND, no orthopnea. RESPIRATORY: Cough, no hemoptysis. GI: No nausea, no vomiting. No abdominal pain. : No hematuria. No polyuria. MUSCULOSKELETAL: No joint swelling. PSYCHIATRIC: Not anxious. No depression. No suicidal thoughts. No homicidal thoughts. SKIN: Intact. No rash. PHYSICAL EXAMINATION: V/S: blood pressure 113/63, respiratory rate 20, heart rate 80, temperature 97.2 with saturation 95 on 4 liters. HEENT: Normocephalic, atraumatic. Mucosa dry. Pallor positive. No icterus. NECK: Supple. No JVD, no carotid bruit. No lymphadenopathy. LUNGS: Decreased and basilar crackles. Clear to auscultation. No rales or rhonchi. HEART: S1, S2 normal. No S3. No murmur, gallop or regurgitation. ABDOMEN: Soft, nontender. Bowel sounds active. No rigidity. No rebound or guarding. No CVA tenderness. EXTREMITIES: No cyanosis, clubbing or pedal edema. MUSCULOSKELETAL: No joint swelling. NEUROLOGIC: Awake, alert. No focal deficit. LYMPHATIC: No lymph nodes palpable. SKIN: Intact. LABS: WBC 23.54, hgb 9.8, hct 28.3, plt count 166, sodium 134, potassium 4.5, chloride 101, bicarb 18, BUN 138, creatinine 1.85. ASSESSMENT: 1. Hypoxemic respiratory failure 2. Acute on chronic renal failure 3. CHF with systolic dysfunction 20% 4. Constipation, not able to move the bowel for almost 5 days now 5. Pulmonary embolism 6. History of pulmonary embolism 7. DVT 8. Atrial fibrillation on residential anticoagulation PLAN: 1. Rectal suppository enema to help with the bowel movements 2. Continue the breathing treatments 3. Continue Cefepime and Linezolid 4. Daily I&O's TIME SPENT: More than 35 minutes MTDD
--- NOTE | 2017-12-28 13:45 | PN ---
DATE OF SERVICE: 12/26/17 SUBJECTIVE: The patient was admitted with hypoxemic respiratory failure, still coughing and congestion and shortness of breath. BUN and creatinine is getting worse. Today creatinine is 8.75 and BUN 169. PT/INR was elevated which Coumadin has been on hold but PT/INR today is 6.14. Urine has stopped today and the patient has to get bladder wash which drained almost 700ml. REVIEW OF SYSTEMS: CONSTITUTIONAL: No fever, no chills. The patient says that he is sitting more comfortable right now. HEENT: Normal. ENDOCRINE: No weight gain, no weight loss. CVS: No angina symptoms. No CHF symptoms. No palpitations. No atypical chest pain for CAD. Shortness of breath. No PND, no orthopnea. RESPIRATORY: Cough, no hemoptysis. GI: No nausea, no vomiting. No abdominal pain. Had two or three bowel movements. : No hematuria. No polyuria. MUSCULOSKELETAL: No joint swelling. PSYCHIATRIC: Not anxious. No depression. No suicidal thoughts. No homicidal thoughts. SKIN: Intact. No rash. PHYSICAL EXAMINATION: V/S: Blood pressure 100/54, respiratory rate 22, heart rate 84, temperature 97.5 with saturation 97 on 4 liters HEENT: Normocephalic, atraumatic. Mucosa dry. Pallor positive. No icterus. NECK: Supple. No JVD, no carotid bruit. No lymphadenopathy. LUNGS: Bibasilar crackles are present. No rales or rhonchi. HEART: S1, S2 normal. No S3. No murmur, gallop or regurgitation. ABDOMEN: Soft, nontender. Bowel sounds active. No rigidity. No rebound or guarding. No CVA tenderness. EXTREMITIES: No cyanosis, clubbing or pedal edema. MUSCULOSKELETAL: No joint swelling. NEUROLOGIC: Awake, alert. No focal deficit. LYMPHATIC: No lymph nodes palpable. SKIN: Intact. LABS: WBC 22.07, hgb 9.5, hct 27.2, plt count 155, sodium 132, potassium 5.3, chloride 100, bicarb 19, BUN 169, creatinine 8.75, glucose 157, INR 6.14 ASSESSMENT: 1. Coumadin Coagulopathy 2. Pneumonia 3. Pyelonephritis 4. Acute renal failure 5. Systolic heart failure 6. Fluid overload 7. Atrial fibrillation 8. DVT PLAN: 1. Will give Vitamin K 500mg IM 2. Continue the Cefepime 3. Accu-checks with coverage 4. DUO NEBS 5. Zyvox 6. Daily I&O's TIME SPENT: More than 35 minutes MTDD
[2017-12-28] MEDS: TYLENOL PO PRN (21:02)
[2017-12-28] MEDS: SODIUM CHLORIDE 1,000 ML IV SCH (22:56)
[2017-12-29] MEDS: DUONEB NEB SCH ×3 (04:48→14:23)
[2017-12-29] MEDS: PROTONIX PO SCH ×2 (06:14→17:12)
[2017-12-29] MEDS: SOLU-MEDROL 125 MG IVP SCH ×2 (06:14→15:21)
[2017-12-29] MEDS: HUMULIN R SUBCUT PRN ×3 (06:14→17:12)
[2017-12-29] MEDS: TESSALON PERLES PO SCH ×2 (08:00→15:21)
[2017-12-29] MEDS: NON-FORMULARY MEDICATION (Calcitriol [Calcitriol] 0.25 MCG) PO SCH (08:00)
[2017-12-29] MEDS: SODIUM BICARBONATE PO SCH ×3 (08:00→17:11)
[2017-12-29] MEDS: LOPRESSOR PO SCH (08:00)
[2017-12-29] MEDS: CARDIZEM CD PO SCH (08:00)
[2017-12-29] MEDS: PROSCAR PO SCH (08:00)
[2017-12-29] MEDS: FLOMAX PO SCH (08:00)
--- NOTE | 2017-12-29 11:08 | PN ---
DATE OF SERVICE: 12/28/17 SUBJECTIVE: The patient was admitted with the respiratory failure. The patient is now Coumadin Coagulopathy, INR is 5.12. Still coughing, congestion and short of breath. Hgb dropped today from 9.0 to 8.6. Still complains about the shortness of breath. REVIEW OF SYSTEMS: CONSTITUTIONAL: No fever, no chills. HEENT: Normal. ENDOCRINE: No weight gain, no weight loss. CVS: No angina symptoms. No CHF symptoms. No palpitations. No atypical chest pain for CAD. Shortness of breath. No PND, no orthopnea. RESPIRATORY: Cough, no hemoptysis. GI: No nausea, no vomiting. No abdominal pain. : No hematuria. No polyuria. MUSCULOSKELETAL: No joint swelling. PSYCHIATRIC: Not anxious. No depression. No suicidal thoughts. No homicidal thoughts. SKIN: Intact. No rash. PHYSICAL EXAMINATION: V/S: Blood pressure 107/62, respiratory rate 12, heart rate 77, temperature 97.2 with saturation 99%. HEENT: Normocephalic, atraumatic. Mucosa dry, Pallor positive. No icterus. NECK: Supple. No JVD, no carotid bruit. No lymphadenopathy. LUNGS: Decreased and basilar crackles. Clear to auscultation. No rales or rhonchi. HEART: S1, S2 normal. No S3. No murmur, gallop or regurgitation. ABDOMEN: Soft, nontender. Bowel sounds active. No rigidity. No rebound or guarding. No CVA tenderness. EXTREMITIES: No cyanosis, clubbing or pedal edema. MUSCULOSKELETAL: No joint swelling. NEUROLOGIC: Awake, alert. No focal deficit. LYMPHATIC: No lymph nodes palpable. SKIN: Intact. LABS: WBC 19.63, hgb 8.6, hct 24.6, plt count 134, sodium 132, potassium 5.2, chloride 99, bicarb 19, BUN 165, creatinine 8.46 and glucose 135. ASSESSMENT: 1. Acute on chronic renal failure 2. Hyperkalemia 3. Pneumonia 4. UTI 5. Pyelonephritis 6. Atrial fibrillation 7. Coumadin coagulopathy 8. CAD 9. CHF 10.Compromised systolic function PLAN: 1. Continue the Cefepime 2. Zyvox 3. Decrease Solu-Medrol to 80 Q 8 hours Poor prognosis been discussed. TIME SPENT: More than 35 minutes MTDD
[2017-12-29] MEDS: MAXIPIME IV SCH (14:00)
[2017-12-29] MEDS: SODIUM CHLORIDE IV SCH (14:00)
[2017-12-30] MEDS: ATIVAN PO SCH ×2 (00:15→21:36)
[2017-12-30] MEDS: SOLU-MEDROL 125 MG IVP SCH ×4 (00:16→21:36)
[2017-12-30] MEDS: TESSALON PERLES PO SCH ×4 (00:16→21:36)
[2017-12-30] MEDS: LOPRESSOR PO SCH ×3 (00:16→21:36)
[2017-12-30] MEDS: SODIUM CHLORIDE 1,000 ML IV SCH (02:25)
[2017-12-30] MEDS: DUONEB NEB SCH ×5 (05:15→21:02)
[2017-12-30] MEDS: PROTONIX PO SCH ×2 (06:41→16:47)
[2017-12-30] MEDS: HUMULIN R SUBCUT PRN ×4 (06:43→21:36)
[2017-12-30] MEDS ORDERED: ATIVAN IVP PRN (08:46)
[2017-12-30] MEDS: PROSCAR PO SCH (08:54)
[2017-12-30] MEDS: NON-FORMULARY MEDICATION (Calcitriol [Calcitriol] 0.25 MCG) PO SCH (08:54)
[2017-12-30] MEDS: CARDIZEM CD PO SCH (08:54)
[2017-12-30] MEDS: SODIUM BICARBONATE PO SCH ×3 (08:54→16:47)
[2017-12-30] MEDS: FLOMAX PO SCH (08:54)
--- NOTE | 2017-12-30 12:53 | PN ---
DATE OF SERVICE: 12/29/17 SUBJECTIVE: The patient is more awake and alert. Still coughing and congestion otherwise no chest pain. REVIEW OF SYSTEMS: CONSTITUTIONAL: No fever, no chills. HEENT: Normal. ENDOCRINE: No weight gain, no weight loss. CVS: No angina symptoms. No CHF symptoms. No palpitations. No atypical chest pain for CAD. No shortness of breath. No PND, no orthopnea. RESPIRATORY: Cough, no hemoptysis. GI: No nausea, no vomiting. No abdominal pain. : No hematuria. No polyuria. Urine output is still 1230 yesterday and 1575 on December 27. Urine output from the catheter with total 1700 on 12/28. So far he has peed 575ml. MUSCULOSKELETAL: No joint swelling. PSYCHIATRIC: Not anxious. No depression. No suicidal thoughts. No homicidal thoughts. SKIN: Intact. No rash. PHYSICAL EXAMINATION: V/S: Blood pressure 97/55, respiratory rate 20, heart rate 79, temperature 97.6 with saturation 98% on 3 liters. HEENT: Normocephalic, atraumatic. Mucosa dry. Pallor positive. No icterus. NECK: Supple. No JVD, no carotid bruit. No lymphadenopathy. LUNGS: Decreased and basilar crackles. Clear to auscultation. No rales or rhonchi. HEART: S1, S2 normal. No S3. No murmur, gallop or regurgitation. ABDOMEN: Soft, nontender. Bowel sounds active. No rigidity. No rebound or guarding. No CVA tenderness. EXTREMITIES: No cyanosis, clubbing or pedal edema. MUSCULOSKELETAL: No joint swelling. NEUROLOGIC: Awake, alert. No focal deficit. LYMPHATIC: No lymph nodes palpable. SKIN: Intact. LABS: WBC 17.74, hgb 7.6, hct 21.4, plt count 102, PT/INR is improved at 3.42. Sodium 131, potassium 5.2, chloride 99, bicarb 18, BUN 176, creatinine 8.69 and glucose 179. ASSESSMENT: 1. Hypoxemic respiratory failure 2. Acute on chronic renal failure 3. Pneumonia 4. Pyelonephritis 5. Hyperkalemia 6. Anemia with drop in hgb levels 7. CAD 8. CHF 9. CVA 10. Compromise systolic dysfunction 11. exterminator termite anticoagulation PLAN: 1. Stop the Zyvox 2. Continue the Primaxin 3. IV fluids 4. Daily I&O's 5. Breathing treatments 6. Decrease the Solu-Medrol to 80 Q 8 hours. Poor prognosis been discussed with the family and verbalized understanding. TIME SPENT: More than 35 minutes MTDD
[2017-12-30] MEDS: COUMADIN PO SCH (16:51)
[2017-12-31] MEDS: ATIVAN IVP PRN (00:26)
[2017-12-31] MEDS: TYLENOL PO PRN (01:44)
[2017-12-31] MEDS: DUONEB NEB SCH ×4 (04:51→20:40)
[2017-12-31] MEDS: PROTONIX PO SCH ×2 (06:27→16:15)
[2017-12-31] MEDS: HUMULIN R SUBCUT PRN ×3 (06:27→17:32)
[2017-12-31] MEDS: SOLU-MEDROL 125 MG IVP SCH ×3 (06:27→21:29)
[2017-12-31] MEDS: FLOMAX PO SCH (09:24)
[2017-12-31] MEDS: SODIUM BICARBONATE PO SCH ×4 (09:25→17:33)
[2017-12-31] MEDS: CARDIZEM CD PO SCH (09:25)
[2017-12-31] MEDS: PROSCAR PO SCH (09:25)
[2017-12-31] MEDS: NON-FORMULARY MEDICATION (Calcitriol [Calcitriol] 0.25 MCG) PO SCH (09:25)
[2017-12-31] MEDS: LOPRESSOR PO SCH ×2 (09:25→21:30)
[2017-12-31] MEDS: TESSALON PERLES PO SCH ×3 (09:25→21:30)
[2017-12-31] MEDS: MORPHINE 2 MG/ML SYRINGE IVP SCH ×2 (09:29→16:16)
[2017-12-31] MEDS: SODIUM CHLORIDE 1,000 ML IV SCH (09:34)
--- NOTE | 2017-12-31 11:22 | PN ---
DATE OF SERVICE: 12/30/17 SUBJECTIVE: The patient's white count is better 14,000. BUN and creatinine still elevated 186 and 8.50. The patient's family have concerns. Hemoglobin has dropped from 9.8 to 7.6. PT/INR are normal today. Planning for hospice care on the patient, had lengthy discussion. REVIEW OF SYSTEMS: CONSTITUTIONAL: No fever, no chills. HEENT: Normal. ENDOCRINE: No weight gain, no weight loss. CVS: No angina symptoms. No CHF symptoms. No palpitations. No atypical chest pain for CAD. No shortness of breath. No PND, no orthopnea. RESPIRATORY: No cough, no hemoptysis. GI: No nausea, no vomiting. No abdominal pain. : No hematuria. No polyuria. MUSCULOSKELETAL: No joint swelling. PSYCHIATRIC: Not anxious. No depression. No suicidal thoughts. No homicidal thoughts. SKIN: Intact. No rash. PHYSICAL EXAMINATION: V/S: BP 104/60, respiratory rate 18, heart rate 79, temperature 97.4, saturation 98 on 3L. HEENT: Normocephalic, atraumatic. Mucosa dry, pallor positive. No icterus. NECK: Supple. No JVD, no carotid bruit. No lymphadenopathy. LUNGS: Decreased with basilar crackles. HEART: S1, S2 normal. No S3. No murmur, gallop or regurgitation. ABDOMEN: Soft, nontender. Bowel sounds active. No rigidity. No rebound or guarding. No CVA tenderness. EXTREMITIES: No cyanosis, clubbing. Right upper extremity swelling present. MUSCULOSKELETAL: No joint swelling. NEUROLOGIC: Awake, alert. No focal deficit. LYMPHATIC: No lymph nodes palpable. SKIN: Intact. LABS: Sodium 134, potassium 5.1, chloride 101, bicarb 18, BUN 186, creatinine 8.50, glucose 148. White count 14.60, hemoglobin 7.6, hematocrit 11.8, platelet count 92. ASSESSMENT: 1. HYPOXEMIC RESPIRATORY FAILURE 2. PNEUMONIA 3. URINARY TRACT INFECTION 4. PYELONEPHRITIS 5. ACUTE ON CHRONIC RENAL FAILURE 6. ATRIAL FIBRILLATION 7. CAD 8. CHF 9. SYSTOLIC DYSFUNCTION WITH EJECTION FRACTION 20% PLAN: 1. Stop Cefepime 2. Decrease Solu-Medrol to 60 q.8hr 3. Daily I & O's 4. Possible Hospice Care Poor prognosis has been discussed. TIME SPENT: More than 35 minutes MTDD
[2017-12-31] MEDS: COUMADIN PO SCH (16:15)
[2017-12-31] MEDS: ATIVAN PO SCH (21:30)
[2018-01-01] MEDS: MORPHINE 2 MG/ML SYRINGE IVP SCH ×3 (01:35→21:04)
[2018-01-01] MEDS: DUONEB NEB SCH ×4 (04:38→21:22)
[2018-01-01] MEDS: PROTONIX PO SCH ×2 (06:07→18:07)
[2018-01-01] MEDS: SOLU-MEDROL 125 MG IVP SCH ×3 (06:07→21:04)
[2018-01-01] MEDS: SODIUM BICARBONATE PO SCH ×3 (10:21→18:06)
[2018-01-01] MEDS: CARDIZEM CD PO SCH (10:21)
[2018-01-01] MEDS: FLOMAX PO SCH (10:21)
[2018-01-01] MEDS: PROSCAR PO SCH (10:22)
[2018-01-01] MEDS: LOPRESSOR PO SCH ×2 (10:22→21:12)
[2018-01-01] MEDS: NON-FORMULARY MEDICATION (Calcitriol [Calcitriol] 0.25 MCG) PO SCH (10:22)
[2018-01-01] MEDS: TESSALON PERLES PO SCH ×3 (10:23→21:04)
[2018-01-01] MEDS: HUMULIN R SUBCUT PRN ×3 (13:26→22:23)
[2018-01-01] MEDS: SODIUM CHLORIDE 1,000 ML IV SCH (18:06)
[2018-01-01] MEDS: COUMADIN PO SCH (18:06)
[2018-01-01] MEDS ORDERED: CITRATE OF MAGNESIA ONE (21:04)
[2018-01-01] MEDS: ATIVAN PO SCH (21:04)
[2018-01-02] MEDS: MORPHINE 2 MG/ML SYRINGE IVP SCH ×5 (01:47→23:36)
[2018-01-02] MEDS: DUONEB NEB SCH ×4 (04:36→21:30)
[2018-01-02] MEDS: PROTONIX PO SCH ×2 (05:32→17:10)
[2018-01-02] MEDS: SOLU-MEDROL 125 MG IVP SCH ×3 (05:33→22:42)
[2018-01-02] MEDS: HUMULIN R SUBCUT PRN ×5 (07:02→23:35)
[2018-01-02] MEDS ORDERED: SODIUM BICARBONATE 7.5% IVP STA (08:32)
--- NOTE | 2018-01-02 08:47 | DI ---
EXAM: Single view the abdomen. History: Decreased urine output, abdominal swelling. Comparison: Abdominal radiograph 12/23/2017 Findings: Nonspecific bowel gas pattern with a few air distended loops of large bowel. No free intr aperitoneal air. Painter catheter seen within the bladder. Left pleural effusion and left lower lobe infiltrate. No acute osseous abnormalities. No suspicious calcification seen projecting over the re nal shadows. There are atherosclerotic vascular calcifications. Impression: Nonspecific bowel gas pattern
[2018-01-02] MEDS: CARDIZEM CD PO SCH (10:33)
[2018-01-02] MEDS: FLOMAX PO SCH (10:33)
[2018-01-02] MEDS: LOPRESSOR PO SCH ×2 (10:34→21:38)
[2018-01-02] MEDS: PROSCAR PO SCH (10:34)
[2018-01-02] MEDS: CITRATE OF MAGNESIA PO ONE ×2 (10:35→10:46)
[2018-01-02] MEDS ORDERED: KAYEXALATE SUSP PO STA (10:44)
[2018-01-02] MEDS: SODIUM BICARBONATE PO SCH (12:13)
[2018-01-02] MEDS: COUMADIN PO SCH (17:10)
[2018-01-02] MEDS: ATIVAN PO SCH (21:38)
[2018-01-03] MEDS: SODIUM CHLORIDE 1,000 ML IV SCH (03:10)
[2018-01-03] MEDS: DUONEB NEB SCH ×2 (04:39→10:08)
[2018-01-03] MEDS: SOLU-MEDROL 125 MG IVP SCH (05:02)
[2018-01-03] MEDS: PROTONIX PO SCH ×2 (05:46→16:49)
[2018-01-03] MEDS: MORPHINE 2 MG/ML SYRINGE IVP SCH (07:57)
[2018-01-03] MEDS ORDERED: CITRATE OF MAGNESIA PO STA (08:29)
[2018-01-03] MEDS: FLOMAX PO SCH (09:00)
[2018-01-03] MEDS: CARDIZEM CD PO SCH (09:00)
[2018-01-03] MEDS: LOPRESSOR PO SCH ×2 (09:00→20:55)
[2018-01-03] MEDS: PROSCAR PO SCH (09:01)
[2018-01-03] MEDS ORDERED: DUONEB NEB PRN (10:10)
[2018-01-03] MEDS: ROXANOL 20 MG/ML PO SCH ×2 (13:32→20:57)
[2018-01-03] MEDS: CALMOSEPTINE OINTMENT TP SCH ×2 (14:56→20:58)
[2018-01-03] MEDS: COUMADIN PO SCH (16:49)
[2018-01-03] MEDS: ATIVAN PO SCH (20:55)
[2018-01-04] MEDS: ATIVAN IVP PRN (01:18)
[2018-01-04] MEDS: PROTONIX PO SCH ×2 (05:42→17:04)
[2018-01-04] MEDS: ROXANOL 20 MG/ML PO SCH ×8 (05:42→23:19)
--- NOTE | 2018-01-04 07:36 | PN ---
DATE OF SERVICE: 12/31/17 SUBJECTIVE: Daughter and the son decided that they wanted to do comfort measures at this time. WBC is better. REVIEW OF SYSTEMS: CONSTITUTIONAL: No fever, no chills. HEENT: Normal. ENDOCRINE: No weight gain, no weight loss. CVS: No angina symptoms. No CHF symptoms. No palpitations. No atypical chest pain for CAD. No shortness of breath. No PND, no orthopnea. RESPIRATORY: Cough and congestion, no hemoptysis. GI: No nausea, no vomiting. No abdominal pain. : No hematuria. No polyuria. MUSCULOSKELETAL: No joint swelling. PSYCHIATRIC: Not anxious. No depression. No suicidal thoughts. No homicidal thoughts. SKIN: Intact. No rash. PHYSICAL EXAMINATION: V/S: blood pressure 104/60, respiratory rate 14, heart rate 85, temperature 97.5 and saturation 97 on 3 liters. HEENT: Normocephalic, atraumatic. Mucosa dry. Pallor positive. No icterus. NECK: Supple. No JVD, no carotid bruit. No lymphadenopathy. LUNGS: Decreased and basilar crackles. Clear to auscultation. No rales or rhonchi. HEART: S1, S2 normal. No S3. No murmur, gallop or regurgitation. ABDOMEN: Soft, nontender. Bowel sounds active. No rigidity. No rebound or guarding. No CVA tenderness. EXTREMITIES: No cyanosis, clubbing or pedal edema. Right upper extremity swelling present. MUSCULOSKELETAL: No joint swelling. NEUROLOGIC: Awake, alert. No focal deficit. LYMPHATIC: No lymph nodes palpable. SKIN: Intact. LABS: WBC 15.23, hgb 7.7, hct 22.0, plt count 73, sodium 135, potassium 4.9, chloride 103, bicarb 17, BUN 189, creatinine 9.26. ASSESSMENT: 1. Hypoxemic respiratory failure 2. Pneumonia 3. Urinary tract infection 4. Pyelonephritis 5. Acute on chronic renal failure 6. Atrial fibrillation 7. Compromised systolic dysfunction PLAN: 1. Stop the antibiotics 2. Continue the IV fluids 3. Solu-Medrol 4. Breathing treatment 5. Daily I&O's 6. Continue the Ativan 7. Start the Morphine 2mg 8. Comfort measures/palliative care as the patient's condition is deteriorating and poor prognosis at this time which has conveyed to the patient' s daughter, Lorelei who is the power of deputy county attorney. TIME SPENT: More than 35 minutes MTDÁngel
--- NOTE | 2018-01-04 07:41 | PN ---
DATE OF SERVICE: 01/01/18 SUBJECTIVE: The patient was admitted with the hypoxemic respiratory failure, coughing and congestion and pneumonia. Coughing and congestion has improved. No fever or chills. Swelling in the right upper extremity is still present. REVIEW OF SYSTEMS: CONSTITUTIONAL: No fever, no chills. HEENT: Normal. ENDOCRINE: No weight gain, no weight loss. CVS: No angina symptoms. No CHF symptoms. No palpitations. No atypical chest pain for CAD. No shortness of breath. No PND, no orthopnea. RESPIRATORY: Cough, no hemoptysis. GI: No nausea, no vomiting. No abdominal pain. : No hematuria. No polyuria. MUSCULOSKELETAL: No joint swelling. PSYCHIATRIC: Not anxious. No depression. No suicidal thoughts. No homicidal thoughts. SKIN: Intact. No rash. PHYSICAL EXAMINATION: V/S: Blood pressure 109/62, respiratory rate 16, heart rate 80, temperature 97.8 with saturation 99 on 3 liters. HEENT: Normocephalic, atraumatic. Mucosa dry. Pallor positive. No icterus. NECK: Supple. No JVD, no carotid bruit. No lymphadenopathy. LUNGS: Decreased and basilar crackles. No rales or rhonchi. HEART: S1, S2 normal. No S3. No murmur, gallop or regurgitation. ABDOMEN: Soft, nontender. Bowel sounds active. No rigidity. No rebound or guarding. No CVA tenderness. EXTREMITIES: No cyanosis, clubbing or pedal edema. MUSCULOSKELETAL: No joint swelling. NEUROLOGIC: Awake, alert. No focal deficit. LYMPHATIC: No lymph nodes palpable. SKIN: Intact. LABS: WBC 12.69, hgb 7.3, hct 22.2, plt count 83, sodium 134, potassium 5.5, chloride 105, Bicarb 13, BUN 190 and creatinine 9.04 and glucose 179. ASSESSMENT: 1. Acute on chronic renal failure 2. Hyperkalemia 3. Pneumonia which is better 4. Pyelonephritis which improved 5. Atrial fibrillation, systolic dysfunction with ejection fraction 20%, don't want hemodialysis or further evaluation or treatment at a higher center. PLAN: 1. Continue the breathing treatment 2. Comfort measures per the family 3. Morphine 4. Ativan PRN TIME SPENT: More than 35 minutes MTDD
--- NOTE | 2018-01-04 07:47 | PN ---
DATE OF SERVICE: 01/02/18 SUBJECTIVE: Coughing and congestion is improved. The patient's family want only comfort measure at this time. BUN and creatinine is worse today 119 and 9.04. REVIEW OF SYSTEMS: CONSTITUTIONAL: No fever, no chills. HEENT: Normal. ENDOCRINE: No weight gain, no weight loss. CVS: No angina symptoms. No CHF symptoms. No palpitations. No atypical chest pain for CAD. No shortness of breath. No PND, no orthopnea. RESPIRATORY: No cough, no hemoptysis. GI: No nausea, no vomiting. No abdominal pain. : No hematuria. No polyuria. MUSCULOSKELETAL: No joint swelling. PSYCHIATRIC: Not anxious. No depression. No suicidal thoughts. No homicidal thoughts. SKIN: Intact. No rash. PHYSICAL EXAMINATION: V/S: Blood pressure 118/58, respiratory rate 18, heart rate 82, temperature 97.4. HEENT: Normocephalic, atraumatic. Mucosa dry. NECK: Supple. No JVD, no carotid bruit. No lymphadenopathy. LUNGS: Decreased and clear to auscultation. No rales or rhonchi. HEART: S1, S2 normal. No S3. No murmur, gallop or regurgitation. ABDOMEN: Soft, nontender. Bowel sounds active. No rigidity. No rebound or guarding. No CVA tenderness. EXTREMITIES: No cyanosis, clubbing. Swelling is present in the thighs and the buttock area with the dependant edema. MUSCULOSKELETAL: No joint swelling. NEUROLOGIC: Awake, alert. No focal deficit. LYMPHATIC: No lymph nodes palpable. SKIN: Intact. LABS: WBC 12.69, hgb 7.3, hct 22.2, plt count 83, sodium 135, potassium 5.5, chloride 105, bicarb 13, BUN 190, creatinine 9.04, glucose 179 ASSESSMENT: 1. Acute on chronic renal failure 2. Hyperkalemia 3. Worsening anemia 4. Atrial fibrillation on computer terminal operator anticoagulation 5. CHF 6. Pneumonia 7. Pyelonephritis 8. Compromised systolic function, 20% ejection fraction PLAN: 1. Stop Sodium bicarbonate 2. Zofran 3. Calcitrol 4. Tessalon Perles TIME SPENT: More than 35 minutes MTDD
--- NOTE | 2018-01-04 07:59 | PN ---
DATE OF SERVICE: 01/03/18 SUBJECTIVE: The patient's hgb dropped to 6 and hct of 28. The patient's family been approached about the blood transfusion and the daughter refused to doing the blood transfusion at this time just wanting the comfort care. Life threatening condition been discussed. REVIEW OF SYSTEMS: CONSTITUTIONAL: No fever, no chills. HEENT: Normal. ENDOCRINE: No weight gain, no weight loss. CVS: No angina symptoms. No CHF symptoms. No palpitations. No atypical chest pain for CAD. No shortness of breath. No PND, no orthopnea. RESPIRATORY: No cough, no hemoptysis. GI: No nausea, no vomiting. No abdominal pain. : No hematuria. No polyuria. MUSCULOSKELETAL: No joint swelling. PSYCHIATRIC: Not anxious. No depression. No suicidal thoughts. No homicidal thoughts. SKIN: Intact. No rash. PHYSICAL EXAMINATION: V/S: Blood pressure 111/62, respiratory rate 20, heart rate 90, temperature 97.9 with saturation 94% on 3 liters. HEENT: Normocephalic, atraumatic. Mucosa dry. Pallor positive. No icterus. NECK: Supple. No JVD, no carotid bruit. No lymphadenopathy. LUNGS: Decreased and clear to auscultation. No rales or rhonchi. HEART: S1, S2 normal. No S3. No murmur, gallop or regurgitation. ABDOMEN: Soft, nontender. Bowel sounds active. No rigidity. No rebound or guarding. No CVA tenderness. EXTREMITIES: No cyanosis, clubbing or pedal edema. upper extremity and lower sacral area edema is present. MUSCULOSKELETAL: No joint swelling. NEUROLOGIC: Awake, alert. No focal deficit. LYMPHATIC: No lymph nodes palpable. SKIN: Intact. LABS: WBC 13.12, hgb 6.0, hct 17.1, plt count 28, sodium 138, potassium 5.2, chloride 106, bicarb 18, BUN 180, creatinine 8.79 and glucose 149. ASSESSMENT: 1. Severe anemia most likely from the GI bleed 2. Acute on chronic renal failure 3. Hypoxemic respiratory failure 4. Pneumonia 5. Pyelonephritis 6. Atrial fibrillation 7. CHF 8. Impaired systolic function PLAN: 1. Comfort measures 2. Ativan 3. Morphine 4. Poor prognosis been discussed TIME SPENT: More than 35 minutes MTDD
[2018-01-04] MEDS ORDERED: PEDIAPRED 5 MG/5 ML SOL PO SCH (08:00)
[2018-01-04] MEDS: FLOMAX PO SCH (08:13)
[2018-01-04] MEDS: CARDIZEM CD PO SCH (08:13)
[2018-01-04] MEDS: PROSCAR PO SCH (08:13)
[2018-01-04] MEDS: LOPRESSOR PO SCH ×2 (08:13→21:21)
[2018-01-04] MEDS: CALMOSEPTINE OINTMENT TP SCH ×2 (08:15→21:20)
[2018-01-04 17:52] VITALS: BP 110/50; TEMP 97.5
[2018-01-05] MEDS: ROXANOL 20 MG/ML PO SCH (01:28)
--- NOTE | 2018-01-05 02:11 | PCM.PROG ---
Time of : 01:59 (Patient was pulselss and without spontenous breathing. Had no heart tones. Pupils 3mm fixed and non reactive. ) Preliminary Cause of : Chronic Renal failure
--- NOTE | 2018-01-05 10:35 | PN ---
DATE OF SERVICE: 01/04/18 SUBJECTIVE: The patient condition is gradually deteriorating. The patient's family doesn't want any more blood work today. The patient says that he is feeling good. REVIEW OF SYSTEMS: CONSTITUTIONAL: No fever, no chills. HEENT: Normal. ENDOCRINE: No weight gain, no weight loss. CVS: No angina symptoms. No CHF symptoms. No palpitations. No atypical chest pain for CAD. No shortness of breath. No PND, no orthopnea. RESPIRATORY: No cough, no hemoptysis. GI: No nausea, no vomiting. No abdominal pain. : No hematuria. No polyuria. MUSCULOSKELETAL: No joint swelling. PSYCHIATRIC: Not anxious. No depression. No suicidal thoughts. No homicidal thoughts. SKIN: Intact. No rash. PHYSICAL EXAMINATION: V/S: Blood pressure 115/77, respiratory rate 28, heart rate 77, temperature 98.5 with saturation 86 on 3 liters. HEENT: Normocephalic, atraumatic. Mucosa dry. Pallor positive. No icterus. NECK: Supple. No JVD, no carotid bruit. No lymphadenopathy. LUNGS: Decreased and Clear to auscultation. No rales or rhonchi. HEART: S1, S2 normal. No S3. No murmur, gallop or regurgitation. ABDOMEN: Soft, nontender. Bowel sounds active. No rigidity. No rebound or guarding. No CVA tenderness. EXTREMITIES: No cyanosis, clubbing. 1+ edema. Upper extremities edema is present, anasarca is present. MUSCULOSKELETAL: No joint swelling. NEUROLOGIC: Awake, alert. No focal deficit. LYMPHATIC: No lymph nodes palpable. SKIN: Intact. LABS: WBC 13.12, hgb 6.0, hct 17.1, plt count 28, sodium 138, potassium 5.2, chloride 106, bicarb 18, BUN 180, creatinine 1.79. ASSESSMENT: 1. Hypoxemic respiratory failure 2. Pneumonia 3. Pyelonephritis 4. Acute on chronic renal failure 5. Hyperkalemia 6. Anemia 7. GI bleed 8. Thrombocytopenia 9. Atrial fibrillation on superintendent terminal anticoagulation 10.Ejection fraction 20% PLAN: 1. Comfort measures 2. Poor prognosis 3. Morphine PRN TIME SPENT: More than 35 minutes MTDD
--- NOTE | 2018-01-05 17:04 | PCM.HOSP ---
- Initial TCU Admit [id number] 45 Minutes High Severity (87645): 12/22 - Subsequent TCU Care [id number] 25 Minutes per Day (24034): 22. 8/23. 8/24. 8/25. 8/26. 8/27. 8/ 28 [id number] 35 Minutes per Day (35500): 16. 8/17. 8/18. 8/19. 8/20. 8/21 - TCU Discharge [id number] Less Than 30 Minutes (47225): 01/05
--- NOTE | 2018-01-06 10:45 | DS ---
DATE OF SERVICE: 01/05/18 FINAL DIAGNOSIS: 1. Cardiopulmonary arrest 2. Acute on chronic renal failure 3. Hyperkalemia 4. Anemia most likely from GI bleed 5. Systolic ejection fraction 20% 6. Pleural effusion 7. Chronic kidney disease 8. Hypoxemic respiratory failure 9. 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 DIET INSTRUCTIONS: None ACTIVITY: None DISEASE SPECIFIC EDUCATION: None HOSPITAL COURSE: Solomon Hummel who is a 72 year old male had a very extensive hospital course. After being admitted for the hypoxemic respiratory failure and pneumonia and pyelonephritis being treated gradually the patient condition was getting deteriorated and the patient was placed in the transitional care for the IV antibiotics. As patient's condition was deteriorating the patient's family decided not to give any antibiotics so antibiotics were stopped then slowly the medications were stopped. Palliative care was elected so we started the patient on the Morphine and Ativan. BUN and creatinine numbers were gradually getting worse and worse and hgb did drop to 6.0. The patient's family doesn't want the blood transfusion or antibiotic at this time so the patient was given Morphine for the comfort. Gradually the patient slowly deteriorated and early in the morning today the patient was pronounced at 2:09am by Tom. TIME SPENT: MORE THAN 45 MINUTES MTDD
== END 2018-01-05 03:30 | disposition expired | DRG 296 ==
LOC: SCU 13:56 → MEDSURG B 20:14
PROVIDERS: ADMIT Emergency Medicine; ATTEND Emergency Medicine
DX: I46.9 Cardiac arrest, cause unspecified (principal); J18.9 Pneumonia, unspecified organism; I26.99 Other pulmonary embolism without acute cor pulmonale; J44.1 Chronic obstructive pulmonary disease with (acute) exacerbation; J90 Pleural effusion, not elsewhere classified; E87.2 Acidosis; N18.5 Chronic kidney disease, stage 5; N17.9 Acute kidney failure, unspecified; N39.0 Urinary tract infection, site not specified; N18.9 Chronic kidney disease, unspecified; I48.91 Unspecified atrial fibrillation; I50.9 Heart failure, unspecified; I51.89 Other ill-defined heart diseases; I25.10 Atherosclerotic heart disease of native coronary artery without angina pectoris; R06.00 Dyspnea, unspecified; R53.1 Weakness; R06.2 Wheezing; R07.9 Chest pain, unspecified; R50.9 Fever, unspecified; R61 Generalized hyperhidrosis; R00.2 Palpitations; R94.5 Abnormal results of liver function studies; Z91.19 Patient's noncompliance with other medical treatment and regimen; Z79.01 Long term (current) use of anticoagulants
CPT/HCPCS: 36415; 80053; 82962; 85025; 85610; 87081; 94640; 97802